=== PATIENT | male | born 1955 | race Hispanic/Latino ===

== ENCOUNTER 2024-06-04 06:57 | Inpatient (IN) | payer MEDICARE ==
[2024-05-25 10:28] LABS: BASOPHILS # (AUTO) 0.06 K/uL (0.00-0.20); BASOPHILS % (AUTO) 0.8 % (0.0-5.0); EOSINOPHILS # (AUTO) 0.12 K/uL (0.00-0.70); EOSINOPHILS % (AUTO) 1.6 % (0.0-8.0); HEMATOCRIT 44.1 % (42-54); IMMATURE GRANULOCYTE ABSOLUTE 0.02 K/uL (0-1); MEAN CORPUSCULAR HEMOGLOBIN 30.8 pg (27.0-33.0); MEAN CORPUSCULAR HGB CONC 32.2 g/dL (32.0-36.0); MEAN CORPUSCULAR VOLUME 95.7 fL (79-99); MONOCYTES # (AUTO) 0.7 K/uL (0.1-1.0); MONOCYTES % (AUTO) 9.6 % (3.0-13.0); NEUTROPHILS # (AUTO) 4.4 K/uL (1.8-7.7); NEUTROPHILS % (AUTO) 59.7 % (40.0-77.0); PLATELET COUNT (AUTO) 178 K/uL (130-400); RED BLOOD CELL COUNT(AUTO) 4.61 MIL/uL (4.50-6.20); RED CELL DISTRIBUTION WIDTH 13.3 % (11.0-15.5); WHITE BLOOD COUNT (AUTO) 7.3 K/uL (4.8-10.8)
[2024-05-25 10:35] LABS: CREATININE 1.1 mg/dL (0.5-1.3); POTASSIUM 5.6 mmol/L (3.5-5.1)
[2024-05-25 10:37] VITALS: BP 108/63; PULSE 69; RESP 17; TEMP 97.7
[2024-05-25 10:38] LABS: APPEARANCE,URINE CLEAR (CLEAR); BILIRUBIN,URINE NEGATIVE (NEGATIVE); COLOR,URINE LIGHT-YELLOW (YELLOW); GLUCOSE, URINE (UA) >=1000 mg/dL (NEGATIVE); KETONES,URINE NEGATIVE (NEGATIVE); LEUKOCYTE ESTERASE ,URINE NEGATIVE Leu/uL (NEGATIVE); NITRATE,URINE NEGATIVE (NEGATIVE); OCCULT BLOOD,URINE NEGATIVE (NEGATIVE); PROTEIN,URINE NEGATIVE (NEGATIVE); UROBILINOGEN,URINE 0.2 mg/dL (0.2-1.0)
[2024-05-25 10:38] LABS: INR 1.03 (0.85-1.15); PROTHROMBIN TIME 11.1 SEC (9.6-11.6)
[2024-05-25 10:39] LABS: PARTIAL THROMBOPLASTIN TIME 28.2 SEC (26.3-35.5)
[2024-05-25 10:41] LABS: ADD UA MICROSCOPIC YES
[2024-05-25 10:56] LABS: B-TYPE NATRIURETIC PEPTIDE 181 pg/mL (0-100)
[2024-05-25 11:06] LABS: SQUAMOUS EPITHELIAL CELL,UR RARE /HPF (0-2); WBC,URINE 0-1 /HPF (0-1)
[~2024-06-04] VITALS: Ht 162.6 cm; Wt 140.1 kg
[2024-06-04] VITALS (15 sets, daily range): BP systolic 129–162; BP diastolic 64–89; PULSE 65–85; RESP 12–18; TEMP 97.4–98.6; O2SAT 96–97
[~2024-06-04 06:57] MED LIST: AMLODIPINE PO; ATOR10 PO; CETI10TA57 PO; EMPA25TA PO; GABA-529 PO; ICOS1CAP PO; LOSA100T59 PO; METF-444 PO; NITR0.4T50 SL; OMEP40CA21 PO; PIOG45TA64 PO; TADA20TA70 PO; TAMS-1 PO; TIRZ5PEN SQ
[2024-06-04] MEDS: 0.9%NACL 1000ML 1,000 ML IV ONE (08:29)
[2024-06-04] MEDS ORDERED: LIDOCAINE HCL 400MG/20ML VIAL ONE (08:36)
[2024-06-04] MEDS ORDERED: HEParin-NS 1,000 UNIT/500 ML 1,000 ML IV ONE (08:37)
[2024-06-04] MEDS ORDERED: IOHEXOL 350 MG/ML 100ML INFUS..BTL IV ONE (08:37)
[2024-06-04] MEDS ORDERED: HEParin 10,000 UNIT/10ML (1,000 UNIT/ML) VIAL ONE (08:37)
[2024-06-04] MEDS ORDERED: MIDAZOLAM HCL 1 MG/ML 2ML VIAL ONE (08:54)
[2024-06-04] MEDS ORDERED: IOHEXOL-350 50ML VIAL IV ONE (09:06)
[2024-06-04] MEDS ORDERED: DEXTROSE 50%-WATER 50 ML DISP.SYRIN IV PRN (09:30)
[2024-06-04] MEDS ORDERED: GLUCAGON 1MG KIT 1 MG ML IM PRN (09:30)
[2024-06-04 10:40] LABS: INR 1.08 (0.85-1.15); PROTHROMBIN TIME 11.6 SEC (9.6-11.6)
[2024-06-04 10:41] LABS: PARTIAL THROMBOPLASTIN TIME 29.7 SEC (26.3-35.5)
[2024-06-04] MEDS: HEParin 25,000 UNITS/250ML D5W 250 ML IV SCH (10:56)
[2024-06-04] MEDS ORDERED: PoTASSium chloRIDE 20MEQ/100ML 100 ML IV PRN (16:00)
[2024-06-04] MEDS ORDERED: PoTASSium chloRIDE 20MEQ ER 20 MEQ ERTAB PO PRN (16:00)
[2024-06-04] MEDS ORDERED: PoTASSium chl 10% ELIXIR 20MEQ 20 MEQ/15 ML UDCUP PO PRN (16:00)
[2024-06-04] MEDS ORDERED: HEParin 5,000 UNIT VIAL IV PRN (16:00)
[2024-06-04] MEDS ORDERED: MAGNESIUM 2GM PREMIX 50ML 50 ML IV PRN (16:00)
[2024-06-04] MEDS: INSULIN humuLIN R 100 UNIT/ML 3ML SQ SCH (16:29)
[2024-06-04] MEDS: acetaMINOPHEN 325 MG TAB PO PRN (16:31)
[2024-06-04 16:52] LABS: ABG BASE EXCESS -0.4 mmol/L (-2.0-3.0); ABG HCO3 23.4 mmol/L (21.0-28.0); ABG OXYGEN SATURATION 92.1 % (95.0-99.0); ABG PCO2 36 mmHg (35-48); DEVICE COMMENT IMELDA RN RR; PO2, ARTERIAL BG 60.7 mmHg (83.0-108.0); VENT MODE, BG RA (ROOM AIR)
[2024-06-04 17:37] LABS: INR 1.07 (0.85-1.15); PROTHROMBIN TIME 11.5 SEC (9.6-11.6)
[2024-06-04 18:01] LABS: PARTIAL THROMBOPLASTIN TIME > 139.0 SEC (26.3-35.5)
[2024-06-04] MEDS: Icosapent Ethyl (Vascepa) 2 GM PO SCH (21:00)
[2024-06-04] MEDS ORDERED: MELATONIN 5 MG TABLET PO SCH (21:00)
[2024-06-04] MEDS: MELATONIN 5 MG TABLET PO PRN (21:10)
[2024-06-04 21:37] LABS: BASOPHILS # (AUTO) 0.07 K/uL (0.00-0.20); EOSINOPHILS # (AUTO) 0.11 K/uL (0.00-0.70); EOSINOPHILS % (AUTO) 1.6 % (0.0-8.0); HEMATOCRIT 44.1 % (42-54); IMMATURE GRANULOCYTE ABSOLUTE 0.02 K/uL (0-1); LYMPHOCYTES # (AUTO) 2.2 K/uL (1.0-4.8); LYMPHOCYTES % (AUTO) 31.3 % (21.0-51.0); MEAN CORPUSCULAR HEMOGLOBIN 30.6 pg (27.0-33.0); MEAN CORPUSCULAR HGB CONC 32.7 g/dL (32.0-36.0); MEAN CORPUSCULAR VOLUME 93.8 fL (79-99); MONOCYTES # (AUTO) 0.8 K/uL (0.1-1.0); MONOCYTES % (AUTO) 10.9 % (3.0-13.0); NEUTROPHILS # (AUTO) 3.9 K/uL (1.8-7.7); NEUTROPHILS % (AUTO) 54.9 % (40.0-77.0); PLATELET COUNT (AUTO) 175 K/uL (130-400); RED CELL DISTRIBUTION WIDTH 13.3 % (11.0-15.5); WHITE BLOOD COUNT (AUTO) 7.1 K/uL (4.8-10.8)
[2024-06-05] VITALS (7 sets, daily range): BP systolic 91–136; BP diastolic 45–72; PULSE 70–80; RESP 18–22; TEMP 97.8–98.4; O2SAT 95–97
[2024-06-05 04:12] LABS: BASOPHILS # (AUTO) 0.05 K/uL (0.00-0.20); BASOPHILS % (AUTO) 0.7 % (0.0-5.0); EOSINOPHILS # (AUTO) 0.18 K/uL (0.00-0.70); EOSINOPHILS % (AUTO) 2.7 % (0.0-8.0); HEMATOCRIT 40.7 % (42-54); IMMATURE GRANULOCYTE ABSOLUTE 0.02 K/uL (0-1); LYMPHOCYTES # (AUTO) 2.2 K/uL (1.0-4.8); LYMPHOCYTES % (AUTO) 32.3 % (21.0-51.0); MEAN CORPUSCULAR HEMOGLOBIN 30.2 pg (27.0-33.0); MEAN CORPUSCULAR HGB CONC 32.9 g/dL (32.0-36.0); MEAN CORPUSCULAR VOLUME 91.9 fL (79-99); MONOCYTES # (AUTO) 0.7 K/uL (0.1-1.0); MONOCYTES % (AUTO) 10.8 % (3.0-13.0); NEUTROPHILS # (AUTO) 3.6 K/uL (1.8-7.7); NEUTROPHILS % (AUTO) 53.2 % (40.0-77.0); PLATELET COUNT (AUTO) 164 K/uL (130-400); RED BLOOD CELL COUNT(AUTO) 4.43 MIL/uL (4.50-6.20); RED CELL DISTRIBUTION WIDTH 13.2 % (11.0-15.5); WHITE BLOOD COUNT (AUTO) 6.8 K/uL (4.8-10.8)
[2024-06-05 04:33] LABS: HEMOGLOBIN A1C 7.5 % (4.0-6.0)
[2024-06-05 04:36] LABS: CREATININE 0.9 mg/dL (0.5-1.3); POTASSIUM 4.1 mmol/L (3.5-5.1); THYROID STIMULATING HORMONE 4.78 uIU/mL (0.36-3.74)
[2024-06-05] MEDS: amLODIPine 5 MG TAB PO SCH (08:42)
[2024-06-05] MEDS: tamSULOsin HCL 0.4 MG CAP.ER.24H PO SCH (08:42)
[2024-06-05] MEDS: atorVAStatin 10 MG TABLET PO SCH (08:42)
[2024-06-05] MEDS: metOPROLol sucCINATE 25 MG TAB.SR.24H PO SCH (08:43)
[2024-06-05] MEDS: GABApentin 100 MG CAPSULE PO SCH (08:43)
[2024-06-05] MEDS: ISOSORBIDE MONO 30MG SR TAB PO SCH (08:43)
[2024-06-05] MEDS: LoSARTan 100 MG TABLET PO SCH (08:43)
[2024-06-05] MEDS: ASPIRIN 81MG CHEW TAB PO SCH (08:43)
[2024-06-05] MEDS ORDERED: AMLODIPINE 10 MG PO SCH (09:00)
[2024-06-05 09:54] LABS: INR 1.13 (0.85-1.15); PROTHROMBIN TIME 12.1 SEC (9.6-11.6)
[2024-06-05 10:41] LABS: PARTIAL THROMBOPLASTIN TIME > 139.0 SEC (26.3-35.5)
[2024-06-05] MEDS: Icosapent Ethyl (Vascepa) 2 GM PO SCH (11:39)
[2024-06-05 17:43] LABS: INR 1.09 (0.85-1.15); PROTHROMBIN TIME 11.7 SEC (9.6-11.6)
[2024-06-05 18:07] LABS: PARTIAL THROMBOPLASTIN TIME 118.2 SEC (26.3-35.5)
[2024-06-06] VITALS (8 sets, daily range): BP systolic 101–141; BP diastolic 54–71; PULSE 69–77; RESP 18; TEMP 97.8–98.4; O2SAT 94–96
[2024-06-06 10:58] LABS: CHOLESTEROL 93 mg/dL (<200); HDL CHOLESTEROL 55 mg/dL (29-71); LDL DIRECT 43 mg/dL (0-99); TRIGLYCERIDES 21 mg/dL (30-200)
[2024-06-06] MEDS: LACTULOSE 20 GM/30 ML UDCUP PO PRN (13:53)
[2024-06-07] VITALS (8 sets, daily range): BP systolic 95–135; BP diastolic 51–69; PULSE 69–85; RESP 18–20; TEMP 97.9–99.3; O2SAT 97–98
[2024-06-07 13:07] LABS: CREATININE 0.9 mg/dL (0.5-1.3); POTASSIUM 4.3 mmol/L (3.5-5.1)
[2024-06-07] MEDS ORDERED: ceFAZolin SODIUM 1 GM VIAL IVPB SCH (16:00)
[2024-06-07] MEDS: metOPROLol sucCINATE 25 MG TAB.SR.24H PO SCH (21:06)
[2024-06-08] VITALS (40 sets, daily range): BP systolic 72–199; BP diastolic 43–199; PULSE 63–105; RESP 12–22; TEMP 97.7–98.1; O2SAT 98–100
[2024-06-08 04:06] LABS: HEMATOCRIT 38.2 % (42-54); MEAN CORPUSCULAR HEMOGLOBIN 30.5 pg (27.0-33.0); MEAN CORPUSCULAR HGB CONC 32.5 g/dL (32.0-36.0); MEAN CORPUSCULAR VOLUME 94.1 fL (79-99); RED BLOOD CELL COUNT(AUTO) 4.06 MIL/uL (4.50-6.20); RED CELL DISTRIBUTION WIDTH 13.2 % (11.0-15.5); WHITE BLOOD COUNT (AUTO) 7.4 K/uL (4.8-10.8)
[2024-06-08 04:15] LABS: CREATININE 1.2 mg/dL (0.5-1.3); POTASSIUM 4.7 mmol/L (3.5-5.1)
[2024-06-08 04:21] LABS: BILIRUBIN,TOTAL 0.6 mg/dL (0.2-1.0); TOTAL PROTEIN, SERUM 6.1 g/dL (6.0-8.3)
[2024-06-08 04:23] LABS: HEMOGLOBIN A1C 7.3 % (4.0-6.0)
[2024-06-08 04:24] LABS: INR 1.09 (0.85-1.15); PROTHROMBIN TIME 11.7 SEC (9.6-11.6)
[2024-06-08 04:26] LABS: PARTIAL THROMBOPLASTIN TIME 50.1 SEC (26.3-35.5)
[2024-06-08] MEDS ORDERED: EPINEPHrine PF 1MG (1:1,000) 10 MG in 0.9% NACL 250ML 240 ML IV PRN (08:00)
[2024-06-08] MEDS ORDERED: NOREPINEPHRIN 8MG/250ML NS 250 ML IV PRN (08:00)
[2024-06-08] MEDS ORDERED: aminoCAProic ACID 5,000MG VIAL 15,000 MG in 0.9% NACL 500ML IV.SOLN 420 ML IV PRN (08:00)
[2024-06-08] MEDS: ceFAZolin SODIUM 2 GM VIAL IVPB SCH ×2 (08:00→20:07)
[2024-06-08] MEDS: atorVAStatin 20 MG TABLET PO SCH (09:00)
[2024-06-08] MEDS: LoSARTan 50 MG TABLET PO SCH (09:00)
[2024-06-08] MEDS: GABAPENTIN 300 MG CAPSULE PO SCH (09:00)
[2024-06-08] MEDS ORDERED: LIDOCAINE 2G/250ML 250 ML IV ONE (09:59)
[2024-06-08] MEDS ORDERED: NITROGLYCERIN 50MG/D5W 250ML 1 BOT ONE (09:59)
[2024-06-08] MEDS: 0.9%NACL 1000ML 1,000 ML IV ONE (10:39)
[2024-06-08] MEDS ORDERED: aminoCAProic ACID 5,000MG VIAL ONE (10:49)
[2024-06-08] MEDS ORDERED: GLYCOPYRROLATE 0.2 MG/ML 5 ML VIAL ONE (10:49)
[2024-06-08] MEDS ORDERED: HEParin 10,000 UNIT/10ML (1,000 UNIT/ML) VIAL ONE ×3 (10:49→12:21)
[2024-06-08] MEDS ORDERED: PROTamine SULFate 10 MG/ML 25ML VIAL IV ONE (10:49)
[2024-06-08] MEDS ORDERED: FENTanyl CITRate PF 50 MCG/1 ML 20ML VIAL IJ ONE (10:49)
[2024-06-08] MEDS ORDERED: EPINEPHrine PF 1MG (1:1,000) 1 MG/ML AMP ONE (10:49)
[2024-06-08] MEDS ORDERED: LIDOCAINE PF 100MG/5ML (2%) SYRINGE 5ML ONE (10:49)
[2024-06-08] MEDS ORDERED: proPOFol 10 MG/ML 20ML VIAL IV ONE (10:49)
[2024-06-08] MEDS ORDERED: NOREPINEPHRINE BITARTRATE 1 MG/1 ML ML IV ONE (10:49)
[2024-06-08] MEDS ORDERED: SODIUM BICARB 50MEQ 50ML VIAL 200 ML ONE (10:49)
[2024-06-08] MEDS ORDERED: ETOMIDATE 20MG VIAL ONE (10:50)
[2024-06-08] MEDS ORDERED: rocuRONium bROMide 10MG/1ML 5ML VL ONE ×3 (10:50→15:28)
[2024-06-08] MEDS ORDERED: MIDAZOLAM HCL 1 MG/ML 2ML VIAL ONE (10:50)
[2024-06-08] MEDS ORDERED: LACTULOSE 20 GM/30 ML UDCUP PO PRN (11:00)
[2024-06-08] MEDS ORDERED: MAGNESIUM HYDROXIDE 30 ML/UDCUP PO PRN (11:00)
[2024-06-08] MEDS ORDERED: AMIOdarone 150MG VIAL ONE ×3 (11:24→16:52)
[2024-06-08] MEDS ORDERED: VASOpressin 20 UNITS/ML 1ML VIAL ONE (11:25)
[2024-06-08 11:28] LABS: ABG BASE EXCESS -4.9 mmol/L (-2.0-3.0); ABG OXYGEN SATURATION 98.5 % (95.0-99.0); ABG PCO2 42 mmHg (35-48); ABG PH 7.319 (7.35-7.450); CARBON MONOXIDE 0.5; DEVICE COMMENT 1; HHb 1.5; PO2, ARTERIAL BG 156.8 mmHg (83.0-108.0)
[2024-06-08] MEDS ORDERED: NITROGLYCERIN 50MG/D5W 250ML 250 BOT IV SCH (11:30)
[2024-06-08] MEDS ORDERED: 0.9% NACL 500ML IV SCH (11:30)
[2024-06-08] MEDS ORDERED: SODIUM BICARB 50MEQ 50ML VIAL 150 ML ONE (11:30)
[2024-06-08] MEDS ORDERED: aminoCAProic ACID 5,000MG VIAL 15,000 MG in 0.9% NACL 250ML 250 ML IV SCH (11:30)
[2024-06-08] MEDS ORDERED: GLUCAGON 1MG KIT 1 MG ML IM PRN (11:30)
[2024-06-08] MEDS ORDERED: DEXTROSE 50%-WATER 50 ML DISP.SYRIN IV PRN (11:30)
[2024-06-08] MEDS ORDERED: morPHINE 2 MG SYG IV PRN ×2 (11:30)
[2024-06-08] MEDS ORDERED: 0.9%NACL 10ML VIAL IVP PRN (11:30)
[2024-06-08] MEDS ORDERED: traMADol HCL 50 MG TABLET PO PRN ×2 (11:30)
[2024-06-08] MEDS ORDERED: NOREPINEPHRINE BITARTRATE 8 MG in DEXTROSE 5%-WATER 250 ML IV PRN (11:30)
[2024-06-08] MEDS ORDERED: ceFAZolin SODIUM 1 GM VIAL ONE (11:42)
[2024-06-08] MEDS ORDERED: HEParin-NS 1,000 UNIT/500 ML 500 ML IV ONE (11:43)
[2024-06-08 12:36] LABS: ABG BASE EXCESS -3.4 mmol/L (-2.0-3.0); ABG HCO3 21.6 mmol/L (21.0-28.0); ABG OXYGEN SATURATION 97.5 % (95.0-99.0); ABG PCO2 39 mmHg (35-48); ABG PH 7.366 (7.35-7.450); CARBON MONOXIDE 0.5; DEVICE COMMENT 2; HHb 2.5; PO2, ARTERIAL BG 108.1 mmHg (83.0-108.0)
[2024-06-08 13:03] LABS: ABG BASE EXCESS -4.3 mmol/L (-2.0-3.0); ABG HCO3 20.1 mmol/L (21.0-28.0); ABG OXYGEN SATURATION 98.3 % (95.0-99.0); ABG PCO2 35 mmHg (35-48); ABG PH 7.378 (7.35-7.450); CARBON MONOXIDE 0.3; DEVICE COMMENT 3; HHb 1.7; PO2, ARTERIAL BG 171.2 mmHg (83.0-108.0)
[2024-06-08 13:37] LABS: ABG BASE EXCESS -3.6 mmol/L (-2.0-3.0); ABG OXYGEN SATURATION 97.9 % (95.0-99.0); ABG PCO2 37 mmHg (35-48); ABG PH 7.377 (7.35-7.450); CARBON MONOXIDE 0.6; DEVICE COMMENT 4; HHb 2.1; PO2, ARTERIAL BG 116.7 mmHg (83.0-108.0)
[2024-06-08] MEDS: ceFAZolin SODIUM 1 GM VIAL ONE (13:38)
[2024-06-08] MEDS: PAPAVERINE HCL 30 MG/ML 2ML VIAL ONE (13:39)
[2024-06-08 14:37] LABS: ABG BASE EXCESS -1.1 mmol/L (-2.0-3.0); ABG HCO3 23.8 mmol/L (21.0-28.0); ABG OXYGEN SATURATION 94.9 % (95.0-99.0); ABG PCO2 40 mmHg (35-48); ABG PH 7.389 (7.35-7.450); CARBON MONOXIDE 0.6; DEVICE COMMENT 1; HHb 5.1; PO2, ARTERIAL BG 78.7 mmHg (83.0-108.0)
[2024-06-08 15:06] LABS: ABG BASE EXCESS -2.4 mmol/L (-2.0-3.0); ABG HCO3 22.4 mmol/L (21.0-28.0); ABG OXYGEN SATURATION 97.8 % (95.0-99.0); ABG PCO2 38 mmHg (35-48); ABG PH 7.384 (7.35-7.450); CARBON MONOXIDE 0.1; DEVICE COMMENT 5; HHb 2.2; PO2, ARTERIAL BG 130.2 mmHg (83.0-108.0)
[2024-06-08] MEDS ORDERED: SODIUM BICARB 50MEQ 50ML VIAL 50 ML ONE (16:06)
[2024-06-08 16:26] LABS: ABG BASE EXCESS -8.2 mmol/L (-2.0-3.0); ABG OXYGEN SATURATION 95.5 % (95.0-99.0); ABG PCO2 29 mmHg (35-48); CARBON MONOXIDE 0.3; DEVICE COMMENT 6; HHb 4.5; PO2, ARTERIAL BG 88.4 mmHg (83.0-108.0)
[2024-06-08] MEDS ORDERED: MAGNESIUM SULFATE 4.06 MEQ/ML ***TPN USE ONLY IJ ONE (16:59)
[2024-06-08 17:07] LABS: ABG BASE EXCESS -1.1 mmol/L (-2.0-3.0); ABG HCO3 24.2 mmol/L (21.0-28.0); ABG OXYGEN SATURATION 95.3 % (95.0-99.0); ABG PCO2 43 mmHg (35-48); ABG PH 7.371 (7.35-7.450); CARBON MONOXIDE 0.3; DEVICE COMMENT 6; HHb 4.7; PO2, ARTERIAL BG 88.2 mmHg (83.0-108.0)
[2024-06-08] MEDS ORDERED: PoTASSium chloRIDE 20MEQ/100ML 100 ML IV ONE (17:09)
[2024-06-08 17:33] LABS: ABG BASE EXCESS -3.6 mmol/L (-2.0-3.0); ABG HCO3 21.9 mmol/L (21.0-28.0); ABG OXYGEN SATURATION 96.7 % (95.0-99.0); ABG PCO2 41 mmHg (35-48); ABG PH 7.346 (7.35-7.450); CARBON MONOXIDE 0.1; DEVICE COMMENT 7; HHb 3.3; PO2, ARTERIAL BG 104.2 mmHg (83.0-108.0)
[2024-06-08 17:46] LABS: ABG BASE EXCESS -3.7 mmol/L (-2.0-3.0); ABG HCO3 21.8 mmol/L (21.0-28.0); ABG OXYGEN SATURATION 97.3 % (95.0-99.0); ABG PCO2 41 mmHg (35-48); ABG PH 7.343 (7.35-7.450); CARBON MONOXIDE 0.3; DEVICE COMMENT 8; HHb 2.7; PO2, ARTERIAL BG 117.5 mmHg (83.0-108.0)
[2024-06-08 18:37] LABS: ABG BASE EXCESS -0.5 mmol/L (-2.0-3.0); ABG HCO3 25.6 mmol/L (21.0-28.0); ABG PCO2 47 mmHg (35-48); ABG PH 7.352 (7.35-7.450); PO2, ARTERIAL BG 104.3 mmHg (83.0-108.0); VENT MODE, BG SIMV PS 10 (ROOM AIR)
[2024-06-08 18:38] LABS: ABG HCO3 24.6 mmol/L (21.0-28.0); ABG OXYGEN SATURATION 96.5 % (95.0-99.0); ABG PCO2 44 mmHg (35-48); ABG PH 7.362 (7.35-7.450); CARBON MONOXIDE 0.6; HHb 3.5; PO2, ARTERIAL BG 106.9 mmHg (83.0-108.0); VENT MODE, BG SIMV PS 10 (ROOM AIR)
[2024-06-08 18:45] LABS: HEMATOCRIT 35.1 % (42-54); MEAN CORPUSCULAR HEMOGLOBIN 31.4 pg (27.0-33.0); MEAN CORPUSCULAR HGB CONC 32.5 g/dL (32.0-36.0); MEAN CORPUSCULAR VOLUME 96.7 fL (79-99); RED BLOOD CELL COUNT(AUTO) 3.63 MIL/uL (4.50-6.20); RED CELL DISTRIBUTION WIDTH 13.3 % (11.0-15.5); WHITE BLOOD COUNT (AUTO) 25.9 K/uL (4.8-10.8)
[2024-06-08] MEDS: PoTASSium chloRIDE 20MEQ/100ML 100 ML IV PRN (18:50)
[2024-06-08] MEDS: SODIUM BICARB 50MEQ 50ML VIAL IV PRN (18:50)
[2024-06-08] MEDS: dexmedeTOMIDine 400MCG/NS100ML IV SCH (18:50)
[2024-06-08] MEDS: INSULIN REGULAR, HUMAN 3ML 100 UNIT in 0.9%NACL 100ML 99 ML IV SCH (18:52)
[2024-06-08] MEDS: 0.9%NACL 1000ML 1,000 ML IV SCH (18:53)
[2024-06-08 18:55] LABS: INR 1.3 (0.85-1.15); PROTHROMBIN TIME 13.8 SEC (9.6-11.6)
[2024-06-08 18:56] LABS: CREATININE 1.3 mg/dL (0.5-1.3); MAGNESIUM 1.7 mg/dL (1.80-2.40); PARTIAL THROMBOPLASTIN TIME 26.8 SEC (26.3-35.5); POTASSIUM 3.3 mmol/L (3.5-5.1)
[2024-06-08] MEDS ORDERED: dexmedeTOMIDine 400MCG/NS100ML IV SCH (19:00)
[2024-06-08 19:35] LABS: ABG BASE EXCESS 0.7 mmol/L (-2.0-3.0); ABG HCO3 25.5 mmol/L (21.0-28.0); ABG OXYGEN SATURATION 98.2 % (95.0-99.0); ABG PCO2 42 mmHg (35-48); ABG PH 7.403 (7.35-7.450); CARBON MONOXIDE 0.4; HHb 1.8; PO2, ARTERIAL BG 185.2 mmHg (83.0-108.0); VENT MODE, BG SIMV PS 10 (ROOM AIR)
[2024-06-08] MEDS: MAGNESIUM 2GM PREMIX 50ML 50 ML IV PRN (19:45)
[2024-06-08] MEDS: EPINEPHrine PF 1MG (1:1,000) 10 MG in 0.9% NACL 250ML 240 ML IV PRN (19:47)
[2024-06-08] MEDS: VASOpressin 20 UNITS/ML 1ML Vi 20 UNITS in 0.9%NACL 100ML 100 ML IV SCH (19:52)
[2024-06-08 20:33] LABS: ABG HCO3 22.8 mmol/L (21.0-28.0); ABG OXYGEN SATURATION 98.2 % (95.0-99.0); ABG PCO2 40 mmHg (35-48); CARBON MONOXIDE 0.3; DEVICE COMMENT ALINE; HHb 1.8; PO2, ARTERIAL BG 269.3 mmHg (83.0-108.0); VENT MODE, BG SIMV PS10 (ROOM AIR)
[2024-06-08] MEDS: doCUSate SODIUM 100 MG CAP PO ONE (21:00)
[2024-06-08] MEDS: AMIOdarone 900MG VIAL 540 MG in DEXTROSE 5%-WATER 300 ML IV STA (21:20)
[2024-06-08] MEDS: FAMOTIDINE 20MG VIAL IV SCH (21:21)
[2024-06-08] MEDS: ASPIRIN 81MG CHEW TAB NG ONE (21:21)
[2024-06-08 21:33] LABS: ABG BASE EXCESS -1.8 mmol/L (-2.0-3.0); ABG HCO3 23.3 mmol/L (21.0-28.0); ABG OXYGEN SATURATION 98.2 % (95.0-99.0); ABG PCO2 41 mmHg (35-48); ABG PH 7.372 (7.35-7.450); CARBON MONOXIDE 0.1; HHb 1.8; PO2, ARTERIAL BG 231.5 mmHg (83.0-108.0); VENT MODE, BG SIMV PS 10 (ROOM AIR)
[2024-06-08] MEDS: NOREPINEPHRIN 8MG/250ML NS 250 ML IV PRN (22:11)
[2024-06-08] MEDS: ALBUMIN (HUMAN) 5% 250 ML IV PRN (22:14)
[2024-06-08] MEDS: proPOFol 1000 MG/100 ML 100 ML IV PRN (22:16)
[2024-06-08 22:35] LABS: ABG BASE EXCESS -3.1 mmol/L (-2.0-3.0); ABG HCO3 21.6 mmol/L (21.0-28.0); ABG OXYGEN SATURATION 97.9 % (95.0-99.0); ABG PCO2 37 mmHg (35-48); ABG PH 7.379 (7.35-7.450); CARBON MONOXIDE 0.3; HHb 2.1; PO2, ARTERIAL BG 197.9 mmHg (83.0-108.0); VENT MODE, BG SIMV PS 10 (ROOM AIR)
[2024-06-08] MEDS: ALBUMIN (HUMAN) 5% 250 ML IV ONE (23:06)
[2024-06-08 23:28] LABS: ABG BASE EXCESS 4.4 mmol/L (-2.0-3.0); ABG HCO3 28.9 mmol/L (21.0-28.0); ABG OXYGEN SATURATION 98.1 % (95.0-99.0); ABG PCO2 43 mmHg (35-48); ABG PH 7.448 (7.35-7.450); CARBON MONOXIDE 0.3; HHb 1.9; PO2, ARTERIAL BG 251.7 mmHg (83.0-108.0); VENT MODE, BG SIMV PS10 (ROOM AIR)
[2024-06-08] MEDS ORDERED: ALBUMIN IV STA (23:54)
[2024-06-09] VITALS (107 sets, daily range): BP systolic 63–143; BP diastolic 37–111; PULSE 80–109; RESP 10–95; TEMP 97.8–101.9; O2SAT 50–100
[2024-06-09] MEDS: ALBUMIN (HUMAN) 5% 250 ML IV SCH (00:21)
[2024-06-09] MEDS: ALBUMIN (HUMAN) 5% 500 ML IV ONE (00:23)
[2024-06-09 00:56] LABS: ABG HCO3 25.2 mmol/L (21.0-28.0); ABG PCO2 39 mmHg (35-48); ABG PH 7.432 (7.35-7.450); CARBON MONOXIDE 0.3; PO2, ARTERIAL BG 125.2 mmHg (83.0-108.0); VENT MODE, BG SIMV PS 10 (ROOM AIR)
[2024-06-09 01:52] LABS: ABG BASE EXCESS 1.5 mmol/L (-2.0-3.0); ABG HCO3 25.3 mmol/L (21.0-28.0); ABG OXYGEN SATURATION 97.5 % (95.0-99.0); ABG PCO2 37 mmHg (35-48); ABG PH 7.457 (7.35-7.450); CARBON MONOXIDE 0.3; HHb 2.5; VENT MODE, BG SIMV PS10 (ROOM AIR)
[2024-06-09] MEDS: PoTASSium chl 10% ELIXIR 20MEQ 20 MEQ/15 ML UDCUP PO PRN (01:57)
[2024-06-09 02:34] LABS: HEMATOCRIT 25.9 % (42-54); MEAN CORPUSCULAR HEMOGLOBIN 31.1 pg (27.0-33.0); MEAN CORPUSCULAR VOLUME 91.5 fL (79-99); RED BLOOD CELL COUNT(AUTO) 2.83 MIL/uL (4.50-6.20); RED CELL DISTRIBUTION WIDTH 13.8 % (11.0-15.5); WHITE BLOOD COUNT (AUTO) 14.4 K/uL (4.8-10.8)
[2024-06-09 02:41] LABS: INR 1.49 (0.85-1.15); PROTHROMBIN TIME 15.6 SEC (9.6-11.6)
[2024-06-09 02:42] LABS: PARTIAL THROMBOPLASTIN TIME 81.8 SEC (26.3-35.5)
[2024-06-09 02:49] LABS: CREATININE 1.4 mg/dL (0.5-1.3); MAGNESIUM 1.7 mg/dL (1.80-2.40); POTASSIUM 4.6 mmol/L (3.5-5.1)
[2024-06-09 02:52] LABS: PHOSPHORUS 0.6 mg/dL (2.5-4.9)
[2024-06-09 02:59] LABS: ABG BASE EXCESS 2.8 mmol/L (-2.0-3.0); ABG HCO3 26.9 mmol/L (21.0-28.0); ABG OXYGEN SATURATION 96.8 % (95.0-99.0); ABG PCO2 40 mmHg (35-48); ABG PH 7.451 (7.35-7.450); CARBON MONOXIDE 0.3; HHb 3.2; PO2, ARTERIAL BG 116.5 mmHg (83.0-108.0); VENT MODE, BG SIMV PS10 (ROOM AIR)
[2024-06-09] MEDS ORDERED: FENTanyl CITRate PF 0.05 MG/ML 1,000 MCG in 0.9%NACL 100ML 100 ML IJ PRN (03:00)
[2024-06-09] MEDS: FENTanyl 1000MCG+NS 100ML 100 ML IV ONE (03:09)
[2024-06-09 03:43] LABS: ABG BASE EXCESS 2.6 mmol/L (-2.0-3.0); ABG HCO3 25.1 mmol/L (21.0-28.0); ABG PCO2 31 mmHg (35-48); ABG PH 7.529 (7.35-7.450); CARBON MONOXIDE 0.2; PO2, ARTERIAL BG 116.5 mmHg (83.0-108.0); VENT MODE, BG SIMV PS 10 (ROOM AIR)
[2024-06-09 04:48] LABS: ABG HCO3 28.8 mmol/L (21.0-28.0); ABG OXYGEN SATURATION 96.7 % (95.0-99.0); ABG PCO2 40 mmHg (35-48); ABG PH 7.479 (7.35-7.450); CARBON MONOXIDE 0.3; HHb 3.3; PO2, ARTERIAL BG 109.1 mmHg (83.0-108.0); VENT MODE, BG SIMV PS 10 (ROOM AIR)
[2024-06-09] MEDS: ondanSETRON 4MG INJ IV PRN (05:23)
[2024-06-09 06:23] LABS: ABG BASE EXCESS 5.5 mmol/L (-2.0-3.0); ABG HCO3 29.3 mmol/L (21.0-28.0); ABG OXYGEN SATURATION 96.7 % (95.0-99.0); ABG PCO2 40 mmHg (35-48); ABG PH 7.483 (7.35-7.450); CARBON MONOXIDE 0.3; DEVICE COMMENT TED RN AL; HHb 3.3; PO2, ARTERIAL BG 110.8 mmHg (83.0-108.0); VENT MODE, BG SIMV PS 10 (ROOM AIR)
[2024-06-09] MEDS: ceFAZolin SODIUM 2 GM VIAL ONE ×2 (07:32→10:33)
[2024-06-09] MEDS: acetaMINOPHEN 1,000 MG/100 ML VIAL IV SCH ×2 (07:32→18:01)
[2024-06-09 07:47] LABS: ABG BASE EXCESS 4.8 mmol/L (-2.0-3.0); ABG HCO3 28.9 mmol/L (21.0-28.0); ABG OXYGEN SATURATION 93.9 % (95.0-99.0); ABG PCO2 41 mmHg (35-48); ABG PH 7.466 (7.35-7.450); CARBON MONOXIDE 0.8; PO2, ARTERIAL BG 74.7 mmHg (83.0-108.0); VENT MODE, BG SIMV PS 10 (ROOM AIR)
[2024-06-09] MEDS: CALCIUM GLUC 1GM 1 GM in 0.9%NACL 50ML 50 ML IV PRN (07:57)
[2024-06-09 08:57] LABS: ABG BASE EXCESS 4.8 mmol/L (-2.0-3.0); ABG HCO3 28.6 mmol/L (21.0-28.0); ABG PCO2 39 mmHg (35-48); ABG PH 7.482 (7.35-7.450); CARBON MONOXIDE 0.7; PO2, ARTERIAL BG 77.3 mmHg (83.0-108.0); VENT MODE, BG SIMV PS10 (ROOM AIR)
[2024-06-09] MEDS: atorVAStatin 40 MG TABLET PO SCH (09:00)
[2024-06-09] MEDS: furoSEMIDE 20MG VIAL IV SCH (09:00)
[2024-06-09] MEDS: poTASSium PHOS 15 mMOL+NS250ML 250 ML IV PRN (09:42)
[2024-06-09 09:52] LABS: ALBUMIN 2.8 g/dL (3.5-5.0); BILIRUBIN,DIRECT 0.3 mg/dL (0.0-0.3); BILIRUBIN,TOTAL 1.8 mg/dL (0.2-1.0); TOTAL PROTEIN, SERUM 4.5 g/dL (6.0-8.3)
[2024-06-09 10:13] LABS: ABG BASE EXCESS 5.2 mmol/L (-2.0-3.0); ABG HCO3 29.1 mmol/L (21.0-28.0); ABG OXYGEN SATURATION 92.3 % (95.0-99.0); ABG PCO2 40 mmHg (35-48); ABG PH 7.479 (7.35-7.450); CARBON MONOXIDE 1.2; HHb 7.6; PO2, ARTERIAL BG 65.7 mmHg (83.0-108.0); VENT MODE, BG SIMV PS 10 (ROOM AIR)
[2024-06-09 11:10] LABS: ABG BASE EXCESS 5.8 mmol/L (-2.0-3.0); ABG HCO3 29.9 mmol/L (21.0-28.0); ABG OXYGEN SATURATION 93.8 % (95.0-99.0); ABG PCO2 42 mmHg (35-48); ABG PH 7.475 (7.35-7.450); CARBON MONOXIDE 1.4; HHb 6.1; PO2, ARTERIAL BG 74.2 mmHg (83.0-108.0); VENT MODE, BG SIMV PS 10 (ROOM AIR)
[2024-06-09 12:17] LABS: ABG BASE EXCESS 6.7 mmol/L (-2.0-3.0); ABG HCO3 30.8 mmol/L (21.0-28.0); ABG OXYGEN SATURATION 92.8 % (95.0-99.0); ABG PCO2 42 mmHg (35-48); ABG PH 7.481 (7.35-7.450); CARBON MONOXIDE 0.8; HHb 7.1; PO2, ARTERIAL BG 70.4 mmHg (83.0-108.0); VENT MODE, BG SIMV PS 10 (ROOM AIR)
[2024-06-09 16:29] LABS: BASOPHILS # (AUTO) 0.05 K/uL (0.00-0.20); BASOPHILS % (AUTO) 0.4 % (0.0-5.0); IMMATURE GRANULOCYTE ABSOLUTE 0.05 K/uL (0-1); LYMPHOCYTES # (AUTO) 2.3 K/uL (1.0-4.8); LYMPHOCYTES % (AUTO) 18.1 % (21.0-51.0); MEAN CORPUSCULAR HEMOGLOBIN 30.5 pg (27.0-33.0); MEAN CORPUSCULAR HGB CONC 33.2 g/dL (32.0-36.0); MONOCYTES # (AUTO) 1.9 K/uL (0.1-1.0); MONOCYTES % (AUTO) 14.7 % (3.0-13.0); NEUTROPHILS # (AUTO) 8.5 K/uL (1.8-7.7); NEUTROPHILS % (AUTO) 66.4 % (40.0-77.0); NUCLEATED RED BLOOD CELLS 0.2 % (0.0-0.19); PLATELET COUNT (AUTO) 73 K/uL (130-400); RED BLOOD CELL COUNT(AUTO) 2.26 MIL/uL (4.50-6.20); RED CELL DISTRIBUTION WIDTH 16.2 % (11.0-15.5); WHITE BLOOD COUNT (AUTO) 12.8 K/uL (4.8-10.8)
[2024-06-09 16:42] LABS: ALBUMIN 2.9 g/dL (3.5-5.0); CREATININE 1.7 mg/dL (0.5-1.3); HEMATOCRIT 20.8 % (42-54); POTASSIUM 4.9 mmol/L (3.5-5.1); TOTAL PROTEIN, SERUM 4.6 g/dL (6.0-8.3)
[2024-06-09 17:17] LABS: INR 1.44 (0.85-1.15); PROTHROMBIN TIME 15.1 SEC (9.6-11.6)
[2024-06-09 17:18] LABS: PARTIAL THROMBOPLASTIN TIME 36.5 SEC (26.3-35.5)
[2024-06-09] MEDS: FENTanyl 1000MCG+NS 100ML 100 ML IV SCH (18:10)
[2024-06-09 18:11] LABS: ABG BASE EXCESS 5.1 mmol/L (-2.0-3.0); ABG HCO3 28.8 mmol/L (21.0-28.0); ABG OXYGEN SATURATION 91.1 % (95.0-99.0); ABG PCO2 39 mmHg (35-48); ABG PH 7.489 (7.35-7.450); HHb 8.7; PO2, ARTERIAL BG 60.3 mmHg (83.0-108.0); VENT MODE, BG SIMV PS 10 (ROOM AIR)
[2024-06-09] MEDS ORDERED: 0.9%NACL 50ML IV SCH (20:00)
[2024-06-09 20:06] LABS: ABG BASE EXCESS 5.1 mmol/L (-2.0-3.0); ABG HCO3 28.7 mmol/L (21.0-28.0); ABG OXYGEN SATURATION 94.9 % (95.0-99.0); ABG PCO2 38 mmHg (35-48); ABG PH 7.498 (7.35-7.450); CARBON MONOXIDE 0.5; DEVICE COMMENT ALINE; PO2, ARTERIAL BG 80.3 mmHg (83.0-108.0); VENT MODE, BG AC VC (ROOM AIR)
[2024-06-09] MEDS: ZOSYN 3.375GM +NS 50ML IVPB SCH (20:12)
[2024-06-09 22:10] LABS: ABG BASE EXCESS 3.6 mmol/L (-2.0-3.0); ABG HCO3 26.9 mmol/L (21.0-28.0); ABG OXYGEN SATURATION 93.3 % (95.0-99.0); ABG PCO2 35 mmHg (35-48); ABG PH 7.501 (7.35-7.450); CARBON MONOXIDE 0.8; HHb 6.6; PO2, ARTERIAL BG 70.4 mmHg (83.0-108.0)
[2024-06-10] VITALS (105 sets, daily range): BP systolic 73–175; BP diastolic 45–167; PULSE 88–133; RESP 10–120; TEMP 97.7–100.6; O2SAT 92–98
[2024-06-10 00:05] LABS: ABG BASE EXCESS 4.9 mmol/L (-2.0-3.0); ABG HCO3 27.9 mmol/L (21.0-28.0); ABG OXYGEN SATURATION 94.7 % (95.0-99.0); ABG PCO2 34 mmHg (35-48); CARBON MONOXIDE 0.9; HHb 5.2; PO2, ARTERIAL BG 77.2 mmHg (83.0-108.0); VENT MODE, BG SIMV ALINE (ROOM AIR)
[2024-06-10 00:51] LABS: MAGNESIUM 1.9 mg/dL (1.80-2.40); PHOSPHORUS 4.5 mg/dL (2.5-4.9)
[2024-06-10 02:21] LABS: ABG BASE EXCESS 3.6 mmol/L (-2.0-3.0); ABG HCO3 26.5 mmol/L (21.0-28.0); ABG OXYGEN SATURATION 94.3 % (95.0-99.0); ABG PCO2 33 mmHg (35-48); CARBON MONOXIDE 0.6; HHb 5.6; PO2, ARTERIAL BG 73.2 mmHg (83.0-108.0); VENT MODE, BG AC VC (ROOM AIR)
[2024-06-10 04:15] LABS: ABG BASE EXCESS 4.5 mmol/L (-2.0-3.0); ABG HCO3 27.5 mmol/L (21.0-28.0); ABG OXYGEN SATURATION 95.5 % (95.0-99.0); ABG PCO2 34 mmHg (35-48); ABG PH 7.525 (7.35-7.450); CARBON MONOXIDE 0.4; HHb 4.4; PO2, ARTERIAL BG 87.3 mmHg (83.0-108.0); VENT MODE, BG AC VC (ROOM AIR)
[2024-06-10 04:51] LABS: BASOPHILS # (AUTO) 0.06 K/uL (0.00-0.20); BASOPHILS % (AUTO) 0.4 % (0.0-5.0); EOSINOPHILS # (AUTO) 0.05 K/uL (0.00-0.70); EOSINOPHILS % (AUTO) 0.3 % (0.0-8.0); HEMATOCRIT 21.9 % (42-54); LYMPHOCYTES # (AUTO) 2.7 K/uL (1.0-4.8); LYMPHOCYTES % (AUTO) 16.8 % (21.0-51.0); MEAN CORPUSCULAR HEMOGLOBIN 30.8 pg (27.0-33.0); MEAN CORPUSCULAR HGB CONC 33.8 g/dL (32.0-36.0); MEAN CORPUSCULAR VOLUME 91.3 fL (79-99); MONOCYTES # (AUTO) 1.8 K/uL (0.1-1.0); MONOCYTES % (AUTO) 10.8 % (3.0-13.0); NEUTROPHILS # (AUTO) 11.6 K/uL (1.8-7.7); NEUTROPHILS % (AUTO) 71.1 % (40.0-77.0); NUCLEATED RED BLOOD CELLS 0.2 % (0.0-0.19); PLATELET COUNT (AUTO) 62 K/uL (130-400); RED CELL DISTRIBUTION WIDTH 16.3 % (11.0-15.5); WHITE BLOOD COUNT (AUTO) 16.3 K/uL (4.8-10.8)
[2024-06-10 05:08] LABS: ALBUMIN 2.8 g/dL (3.5-5.0); BILIRUBIN,DIRECT 0.4 mg/dL (0.0-0.3); BILIRUBIN,TOTAL 2.1 mg/dL (0.2-1.0); CREATININE 1.9 mg/dL (0.5-1.3); POTASSIUM 4.4 mmol/L (3.5-5.1); TOTAL PROTEIN, SERUM 4.7 g/dL (6.0-8.3)
[2024-06-10 05:20] LABS: INR 1.48 (0.85-1.15); PROTHROMBIN TIME 15.5 SEC (9.6-11.6)
[2024-06-10 05:22] LABS: PARTIAL THROMBOPLASTIN TIME 35.2 SEC (26.3-35.5)
[2024-06-10 07:14] LABS: ABG BASE EXCESS 3.9 mmol/L (-2.0-3.0); ABG HCO3 27.8 mmol/L (21.0-28.0); ABG OXYGEN SATURATION 92.6 % (95.0-99.0); ABG PCO2 39 mmHg (35-48); ABG PH 7.471 (7.35-7.450); CARBON MONOXIDE 0.8; HHb 7.3; PO2, ARTERIAL BG 69.6 mmHg (83.0-108.0); VENT MODE, BG SIMV PS 10 (ROOM AIR)
[2024-06-10] MEDS: AMIOdarone 150MG VIAL 150 MG in DEXTROSE 5%-WATER 100 ML IV PRN (07:40)
[2024-06-10] MEDS: AMIOdarone 900MG VIAL 360 MG in DEXTROSE 5%-WATER 200 ML IV SCH (07:45)
[2024-06-10] MEDS ORDERED: AMIOdarone 900MG VIAL 360 MG in DEXTROSE 5%-WATER 200 ML IV SCH (08:00)
[2024-06-10] MEDS ORDERED: AMIOdarone 900MG VIAL 540 MG in DEXTROSE 5%-WATER 300 ML IV SCH (08:00)
[2024-06-10] MEDS ORDERED: furoSEMIDE 20 MG TABLET PO SCH (09:00)
[2024-06-10] MEDS ORDERED: metoPROLOL tartRATE 25 MG TAB PO SCH (09:00)
[2024-06-10 09:16] LABS: ABG BASE EXCESS 1.2 mmol/L (-2.0-3.0); ABG HCO3 25.7 mmol/L (21.0-28.0); ABG OXYGEN SATURATION 94.1 % (95.0-99.0); ABG PCO2 40 mmHg (35-48); ABG PH 7.426 (7.35-7.450); CARBON MONOXIDE 0.9; HHb 5.8; PO2, ARTERIAL BG 80.6 mmHg (83.0-108.0); VENT MODE, BG SIMV (ROOM AIR)
[2024-06-10 11:34] LABS: ABG HCO3 25.7 mmol/L (21.0-28.0); ABG OXYGEN SATURATION 92.5 % (95.0-99.0); ABG PCO2 36 mmHg (35-48); ABG PH 7.474 (7.35-7.450); CARBON MONOXIDE 0.9; HHb 7.4; VENT MODE, BG SIMV PS10 (ROOM AIR)
[2024-06-10] MEDS: AMIOdarone 900MG VIAL 540 MG in DEXTROSE 5%-WATER 300 ML IV SCH (13:35)
[2024-06-10 14:09] LABS: ABG BASE EXCESS 3.8 mmol/L (-2.0-3.0); ABG HCO3 28.2 mmol/L (21.0-28.0); ABG PCO2 42 mmHg (35-48); ABG PH 7.443 (7.35-7.450); CARBON MONOXIDE 0.9; HHb 5.9; PO2, ARTERIAL BG 77.1 mmHg (83.0-108.0); VENT MODE, BG SIMV PS 10 (ROOM AIR)
[2024-06-10 16:03] LABS: BASOPHILS # (AUTO) 0.06 K/uL (0.00-0.20); BASOPHILS % (AUTO) 0.3 % (0.0-5.0); EOSINOPHILS # (AUTO) 0.01 K/uL (0.00-0.70); EOSINOPHILS % (AUTO) 0.1 % (0.0-8.0); HEMATOCRIT 23.9 % (42-54); LYMPHOCYTES # (AUTO) 1.9 K/uL (1.0-4.8); MEAN CORPUSCULAR HEMOGLOBIN 30.8 pg (27.0-33.0); MEAN CORPUSCULAR HGB CONC 33.9 g/dL (32.0-36.0); MEAN CORPUSCULAR VOLUME 90.9 fL (79-99); MONOCYTES # (AUTO) 1.5 K/uL (0.1-1.0); MONOCYTES % (AUTO) 8.3 % (3.0-13.0); NEUTROPHILS # (AUTO) 13.9 K/uL (1.8-7.7); NEUTROPHILS % (AUTO) 79.2 % (40.0-77.0); NUCLEATED RED BLOOD CELLS 0.3 % (0.0-0.19); PLATELET COUNT (AUTO) 54 K/uL (130-400); RED BLOOD CELL COUNT(AUTO) 2.63 MIL/uL (4.50-6.20); RED CELL DISTRIBUTION WIDTH 16.5 % (11.0-15.5); WHITE BLOOD COUNT (AUTO) 17.5 K/uL (4.8-10.8)
[2024-06-10 16:24] LABS: ABG BASE EXCESS 4.5 mmol/L (-2.0-3.0); ABG HCO3 28.8 mmol/L (21.0-28.0); ABG OXYGEN SATURATION 96.1 % (95.0-99.0); ABG PCO2 42 mmHg (35-48); ABG PH 7.456 (7.35-7.450); CARBON MONOXIDE 0.7; HHb 3.9; PO2, ARTERIAL BG 90.3 mmHg (83.0-108.0); VENT MODE, BG SIMV (ROOM AIR)
[2024-06-10 16:26] LABS: ALBUMIN 2.6 g/dL (3.5-5.0); BILIRUBIN,TOTAL 1.8 mg/dL (0.2-1.0); CREATININE 1.9 mg/dL (0.5-1.3); MAGNESIUM 2.3 mg/dL (1.80-2.40); POTASSIUM 4.4 mmol/L (3.5-5.1); TOTAL PROTEIN, SERUM 4.6 g/dL (6.0-8.3)
[2024-06-10] MEDS: furoSEMIDE 20MG VIAL IV SCH (16:49)
[2024-06-10] MEDS: furoSEMIDE 100MG VIAL 100 MG in 0.9%NACL 100ML 100 ML IV SCH (17:13)
[2024-06-10 17:54] LABS: ABG BASE EXCESS 3.7 mmol/L (-2.0-3.0); ABG HCO3 28.2 mmol/L (21.0-28.0); ABG OXYGEN SATURATION 95.3 % (95.0-99.0); ABG PCO2 43 mmHg (35-48); ABG PH 7.437 (7.35-7.450); CARBON MONOXIDE 0.6; DEVICE COMMENT RN BRIZA; HHb 4.6; PO2, ARTERIAL BG 85.6 mmHg (83.0-108.0); VENT MODE, BG SIMV (ROOM AIR)
[2024-06-10] MEDS: AMIOdarone 150MG VIAL 150 MG in DEXTROSE 5%-WATER 100 ML IV SCH (18:44)
[2024-06-10 20:28] LABS: ABG BASE EXCESS 1.8 mmol/L (-2.0-3.0); ABG HCO3 26.6 mmol/L (21.0-28.0); ABG OXYGEN SATURATION 96.7 % (95.0-99.0); ABG PCO2 43 mmHg (35-48); ABG PH 7.409 (7.35-7.450); CARBON MONOXIDE 0.5; HHb 3.3; PO2, ARTERIAL BG 101.9 mmHg (83.0-108.0); VENT MODE, BG SIMV,PS10 (ROOM AIR)
[2024-06-10 22:18] LABS: ABG BASE EXCESS 2.2 mmol/L (-2.0-3.0); ABG HCO3 26.9 mmol/L (21.0-28.0); ABG PCO2 43 mmHg (35-48); CARBON MONOXIDE 0.2; PO2, ARTERIAL BG 94.4 mmHg (83.0-108.0); VENT MODE, BG SIMV,PS10 (ROOM AIR)
[2024-06-10] MEDS: CALCIUM GLUC 1GM/10ML VIAL ONE (23:27)
[2024-06-11] VITALS (122 sets, daily range): BP systolic 87–233; BP diastolic 37–229; PULSE 46–121; RESP 10–117; TEMP 98.2–100.6; O2SAT 97–99
[2024-06-11 00:16] LABS: ABG BASE EXCESS 0.2 mmol/L (-2.0-3.0); ABG HCO3 25.1 mmol/L (21.0-28.0); ABG OXYGEN SATURATION 96.4 % (95.0-99.0); ABG PCO2 42 mmHg (35-48); ABG PH 7.395 (7.35-7.450); CARBON MONOXIDE 0.2; HHb 3.6; PO2, ARTERIAL BG 103.3 mmHg (83.0-108.0); VENT MODE, BG SIMV (ROOM AIR)
[2024-06-11] MEDS: ZOSYN 3.375GM +NS 50ML IVPB SCH ×2 (00:17→20:31)
[2024-06-11] MEDS: CALCIUM GLUC 1GM/10ML VIAL ONE ×4 (01:38→23:31)
[2024-06-11 02:32] LABS: ABG BASE EXCESS -3.7 mmol/L (-2.0-3.0); ABG HCO3 21.4 mmol/L (21.0-28.0); ABG OXYGEN SATURATION 97.9 % (95.0-99.0); ABG PCO2 38 mmHg (35-48); ABG PH 7.363 (7.35-7.450); CARBON MONOXIDE 0.2; HHb 2.1; PO2, ARTERIAL BG 122.2 mmHg (83.0-108.0); VENT MODE, BG SIMV (ROOM AIR)
[2024-06-11] MEDS: SODIUM BICARB 50MEQ 50ML VIAL 150 ML ONE (03:14)
[2024-06-11 03:44] LABS: BASOPHILS # (AUTO) 0.08 K/uL (0.00-0.20); BASOPHILS % (AUTO) 0.4 % (0.0-5.0); EOSINOPHILS # (AUTO) 0.09 K/uL (0.00-0.70); EOSINOPHILS % (AUTO) 0.5 % (0.0-8.0); IMMATURE GRANULOCYTE ABSOLUTE 0.25 K/uL (0-1); LYMPHOCYTES # (AUTO) 2.3 K/uL (1.0-4.8); LYMPHOCYTES % (AUTO) 11.7 % (21.0-51.0); MEAN CORPUSCULAR HEMOGLOBIN 30.4 pg (27.0-33.0); MEAN CORPUSCULAR HGB CONC 33.9 g/dL (32.0-36.0); MEAN CORPUSCULAR VOLUME 89.5 fL (79-99); MONOCYTES # (AUTO) 1.8 K/uL (0.1-1.0); MONOCYTES % (AUTO) 9.3 % (3.0-13.0); NEUTROPHILS % (AUTO) 76.8 % (40.0-77.0); NUCLEATED RED BLOOD CELLS 0.6 % (0.0-0.19); PLATELET COUNT (AUTO) 73 K/uL (130-400); RED BLOOD CELL COUNT(AUTO) 2.57 MIL/uL (4.50-6.20); RED CELL DISTRIBUTION WIDTH 17.2 % (11.0-15.5); WHITE BLOOD COUNT (AUTO) 19.5 K/uL (4.8-10.8)
[2024-06-11 03:59] LABS: INR 1.35 (0.85-1.15); PROTHROMBIN TIME 14.3 SEC (9.6-11.6)
[2024-06-11 04:00] LABS: PARTIAL THROMBOPLASTIN TIME 32.9 SEC (26.3-35.5)
[2024-06-11 04:12] LABS: ALBUMIN 2.6 g/dL (3.5-5.0); BILIRUBIN,DIRECT 0.9 mg/dL (0.0-0.3); CREATININE 2.2 mg/dL (0.5-1.3); POTASSIUM 4.5 mmol/L (3.5-5.1); TOTAL PROTEIN, SERUM 4.7 g/dL (6.0-8.3)
[2024-06-11 05:08] LABS: ABG BASE EXCESS 5.7 mmol/L (-2.0-3.0); ABG HCO3 30.7 mmol/L (21.0-28.0); ABG PCO2 47 mmHg (35-48); ABG PH 7.429 (7.35-7.450); CARBON MONOXIDE 0.6; HHb 4.9; PO2, ARTERIAL BG 82.3 mmHg (83.0-108.0); VENT MODE, BG SIMV (ROOM AIR)
[2024-06-11] MEDS ORDERED: ENOXAPARIN SODIUM 30 MG/0.3 ML SQ SCH (09:00)
[2024-06-11 10:15] LABS: ABG BASE EXCESS 4.3 mmol/L (-2.0-3.0); ABG HCO3 28.6 mmol/L (21.0-28.0); ABG OXYGEN SATURATION 97.4 % (95.0-99.0); ABG PCO2 42 mmHg (35-48); ABG PH 7.453 (7.35-7.450); CARBON MONOXIDE 1.1; HHb 2.6; PO2, ARTERIAL BG 105.5 mmHg (83.0-108.0); VENT MODE, BG SIMV, PS10 (ROOM AIR)
[2024-06-11] MEDS ORDERED: COMPOUND IV MISC 1 EACH IVSOLN MISC PRN (12:30)
[2024-06-11] MEDS: AMIOdarone 200 MG TABLET PO SCH (13:34)
[2024-06-11] MEDS: levoFLOXacin 250 MG/D5W 50ML 50 ML IV SCH (13:41)
[2024-06-11 14:16] LABS: ABG BASE EXCESS 5.7 mmol/L (-2.0-3.0); ABG HCO3 30.4 mmol/L (21.0-28.0); ABG OXYGEN SATURATION 97.4 % (95.0-99.0); ABG PCO2 46 mmHg (35-48); ABG PH 7.441 (7.35-7.450); CARBON MONOXIDE 0.7; HHb 2.6; PO2, ARTERIAL BG 110.8 mmHg (83.0-108.0); VENT MODE, BG SIMV, PS10 (ROOM AIR)
[2024-06-11 16:06] LABS: BASOPHILS # (AUTO) 0.09 K/uL (0.00-0.20); BASOPHILS % (AUTO) 0.4 % (0.0-5.0); HEMATOCRIT 25.2 % (42-54); IMMATURE GRANULOCYTE ABSOLUTE 0.64 K/uL (0-1); LYMPHOCYTES % (AUTO) 9.6 % (21.0-51.0); MEAN CORPUSCULAR HEMOGLOBIN 30.7 pg (27.0-33.0); MEAN CORPUSCULAR HGB CONC 33.3 g/dL (32.0-36.0); MONOCYTES # (AUTO) 1.7 K/uL (0.1-1.0); MONOCYTES % (AUTO) 8.4 % (3.0-13.0); NEUTROPHILS # (AUTO) 15.9 K/uL (1.8-7.7); NEUTROPHILS % (AUTO) 77.5 % (40.0-77.0); NUCLEATED RED BLOOD CELLS 1.1 % (0.0-0.19); PLATELET COUNT (AUTO) 68 K/uL (130-400); RED BLOOD CELL COUNT(AUTO) 2.74 MIL/uL (4.50-6.20); WHITE BLOOD COUNT (AUTO) 20.5 K/uL (4.8-10.8)
[2024-06-11 16:32] LABS: ALBUMIN 2.7 g/dL (3.5-5.0); CREATININE 2.1 mg/dL (0.5-1.3); POTASSIUM 4.2 mmol/L (3.5-5.1); TOTAL PROTEIN, SERUM 5.2 g/dL (6.0-8.3)
[2024-06-11 19:09] LABS: ABG BASE EXCESS 7.3 mmol/L (-2.0-3.0); ABG HCO3 30.9 mmol/L (21.0-28.0); ABG OXYGEN SATURATION 98.1 % (95.0-99.0); ABG PCO2 39 mmHg (35-48); ABG PH 7.512 (7.35-7.450); CARBON MONOXIDE 0.8; DEVICE COMMENT LINE RN JAROD; HHb 1.9; PO2, ARTERIAL BG 118.5 mmHg (83.0-108.0); VENT MODE, BG SIMV (ROOM AIR)
[2024-06-11 23:25] LABS: ABG HCO3 32.6 mmol/L (21.0-28.0); ABG OXYGEN SATURATION 97.5 % (95.0-99.0); ABG PCO2 41 mmHg (35-48); ABG PH 7.523 (7.35-7.450); CARBON MONOXIDE 0.9; DEVICE COMMENT LINE RN JARD; HHb 2.5; PO2, ARTERIAL BG 104.9 mmHg (83.0-108.0); VENT MODE, BG SIMV PS10 (ROOM AIR)
[2024-06-12] VITALS (124 sets, daily range): BP systolic 63–177; BP diastolic 41–247; PULSE 69–145; RESP 11–20; TEMP 97.9–102.3; O2SAT 97–100
[2024-06-12 02:44] LABS: ABG BASE EXCESS 8.1 mmol/L (-2.0-3.0); ABG HCO3 31.1 mmol/L (21.0-28.0); ABG OXYGEN SATURATION 97.5 % (95.0-99.0); ABG PCO2 37 mmHg (35-48); ABG PH 7.546 (7.35-7.450); DEVICE COMMENT LINE RN JAROD; HHb 2.5; PO2, ARTERIAL BG 101.8 mmHg (83.0-108.0); VENT MODE, BG SIMV PS10 (ROOM AIR)
[2024-06-12] MEDS: acetaMINOPHEN 1,000 MG/100 ML VIAL IV PRN (02:54)
[2024-06-12 04:25] LABS: BASOPHILS # (AUTO) 0.07 K/uL (0.00-0.20); BASOPHILS % (AUTO) 0.4 % (0.0-5.0); EOSINOPHILS # (AUTO) 0.15 K/uL (0.00-0.70); EOSINOPHILS % (AUTO) 0.9 % (0.0-8.0); HEMATOCRIT 23.5 % (42-54); IMMATURE GRANULOCYTE ABSOLUTE 0.37 K/uL (0-1); LYMPHOCYTES # (AUTO) 2.4 K/uL (1.0-4.8); MEAN CORPUSCULAR HEMOGLOBIN 31.1 pg (27.0-33.0); MEAN CORPUSCULAR HGB CONC 33.6 g/dL (32.0-36.0); MEAN CORPUSCULAR VOLUME 92.5 fL (79-99); MONOCYTES # (AUTO) 1.6 K/uL (0.1-1.0); MONOCYTES % (AUTO) 9.2 % (3.0-13.0); NEUTROPHILS # (AUTO) 12.4 K/uL (1.8-7.7); NEUTROPHILS % (AUTO) 73.3 % (40.0-77.0); NUCLEATED RED BLOOD CELLS 1.2 % (0.0-0.19); PLATELET COUNT (AUTO) 64 K/uL (130-400); RED BLOOD CELL COUNT(AUTO) 2.54 MIL/uL (4.50-6.20); RED CELL DISTRIBUTION WIDTH 16.2 % (11.0-15.5)
[2024-06-12 04:42] LABS: INR 1.2 (0.85-1.15); PROTHROMBIN TIME 12.8 SEC (9.6-11.6)
[2024-06-12 04:43] LABS: PARTIAL THROMBOPLASTIN TIME 35.7 SEC (26.3-35.5)
[2024-06-12 04:51] LABS: ALBUMIN 2.5 g/dL (3.5-5.0); BILIRUBIN,DIRECT 0.6 mg/dL (0.0-0.3); BILIRUBIN,TOTAL 1.7 mg/dL (0.2-1.0); CREATININE 2.1 mg/dL (0.5-1.3); POTASSIUM 3.9 mmol/L (3.5-5.1); TOTAL PROTEIN, SERUM 4.9 g/dL (6.0-8.3)
[2024-06-12 06:22] LABS: ABG HCO3 30.2 mmol/L (21.0-28.0); ABG OXYGEN SATURATION 98.1 % (95.0-99.0); ABG PCO2 37 mmHg (35-48); ABG PH 7.528 (7.35-7.450); CARBON MONOXIDE 0.8; HHb 1.9; VENT MODE, BG SIMV-VC PS10 (ROOM AIR)
[2024-06-12] MEDS: CALCIUM GLUC 1GM/10ML VIAL ONE (07:00)
[2024-06-12 08:39] LABS: PHOSPHORUS 3.9 mg/dL (2.5-4.9)
[2024-06-12 10:29] LABS: ABG BASE EXCESS 5.8 mmol/L (-2.0-3.0); ABG HCO3 28.7 mmol/L (21.0-28.0); ABG OXYGEN SATURATION 96.5 % (95.0-99.0); ABG PCO2 35 mmHg (35-48); ABG PH 7.536 (7.35-7.450); CARBON MONOXIDE 1.1; HHb 3.4; PO2, ARTERIAL BG 87.7 mmHg (83.0-108.0); VENT MODE, BG SIMV-VC PS10 (ROOM AIR)
[2024-06-12] MEDS: AMIOdarone 900MG VIAL 150 MG in DEXTROSE 5%-WATER 100 ML IV SCH (13:28)
[2024-06-12] MEDS: AMIOdarone 900MG VIAL 540 MG in DEXTROSE 5%-WATER 300 ML IV STA (13:35)
[2024-06-12] MEDS: AMIOdarone 900MG VIAL 360 MG in DEXTROSE 5%-WATER 200 ML IV SCH (13:47)
[2024-06-12 14:05] LABS: ABG BASE EXCESS 6.3 mmol/L (-2.0-3.0); ABG HCO3 29.6 mmol/L (21.0-28.0); ABG OXYGEN SATURATION 96.3 % (95.0-99.0); ABG PCO2 37 mmHg (35-48); ABG PH 7.517 (7.35-7.450); CARBON MONOXIDE 0.9; HHb 3.6; PO2, ARTERIAL BG 89.2 mmHg (83.0-108.0); VENT MODE, BG SIMV-VC PS10 (ROOM AIR)
[2024-06-12 15:49] LABS: BASOPHILS # (AUTO) 0.07 K/uL (0.00-0.20); BASOPHILS % (AUTO) 0.4 % (0.0-5.0); EOSINOPHILS # (AUTO) 0.28 K/uL (0.00-0.70); EOSINOPHILS % (AUTO) 1.7 % (0.0-8.0); HEMATOCRIT 23.5 % (42-54); LYMPHOCYTES # (AUTO) 2.1 K/uL (1.0-4.8); LYMPHOCYTES % (AUTO) 12.9 % (21.0-51.0); MEAN CORPUSCULAR HEMOGLOBIN 30.4 pg (27.0-33.0); MEAN CORPUSCULAR HGB CONC 33.2 g/dL (32.0-36.0); MEAN CORPUSCULAR VOLUME 91.4 fL (79-99); MONOCYTES # (AUTO) 1.7 K/uL (0.1-1.0); MONOCYTES % (AUTO) 10.2 % (3.0-13.0); NEUTROPHILS # (AUTO) 11.7 K/uL (1.8-7.7); NEUTROPHILS % (AUTO) 72.3 % (40.0-77.0); NUCLEATED RED BLOOD CELLS 0.7 % (0.0-0.19); PLATELET COUNT (AUTO) 49 K/uL (130-400); RED BLOOD CELL COUNT(AUTO) 2.57 MIL/uL (4.50-6.20); RED CELL DISTRIBUTION WIDTH 15.9 % (11.0-15.5); WHITE BLOOD COUNT (AUTO) 16.2 K/uL (4.8-10.8)
[2024-06-12 16:13] LABS: ALBUMIN 2.5 g/dL (3.5-5.0); CREATININE 1.9 mg/dL (0.5-1.3); POTASSIUM 4.3 mmol/L (3.5-5.1)
[2024-06-12] MEDS: proPOFol 1000 MG/100 ML IV PRN (17:33)
[2024-06-12 18:12] LABS: ABG BASE EXCESS 5.6 mmol/L (-2.0-3.0); ABG HCO3 28.6 mmol/L (21.0-28.0); ABG OXYGEN SATURATION 97.4 % (95.0-99.0); ABG PCO2 35 mmHg (35-48); ABG PH 7.529 (7.35-7.450); CARBON MONOXIDE 1.1; DEVICE COMMENT SILVIA RN ,AL; HHb 2.6; PO2, ARTERIAL BG 108.4 mmHg (83.0-108.0); VENT MODE, BG SIMV PS 10 (ROOM AIR)
[2024-06-12] MEDS: AMIODARONE 540 MG/D5W 300ML (0.5MG/MIN) IV SCH (19:55)
[2024-06-12] MEDS: acetaMINOPHEN 325 MG TAB PO PRN (21:42)
[2024-06-12 21:56] LABS: ABG BASE EXCESS 5.3 mmol/L (-2.0-3.0); ABG HCO3 28.6 mmol/L (21.0-28.0); ABG OXYGEN SATURATION 97.3 % (95.0-99.0); ABG PCO2 36 mmHg (35-48); ABG PH 7.513 (7.35-7.450); HHb 2.6; PO2, ARTERIAL BG 106.3 mmHg (83.0-108.0); VENT MODE, BG SIMV PS 10 (ROOM AIR)
[2024-06-13] VITALS (96 sets, daily range): BP systolic 83–141; BP diastolic 44–73; PULSE 76–124; RESP 12–19; TEMP 99–99.5; O2SAT 97–99
[2024-06-13] MEDS: INSULIN REGULAR, HUMAN 3ML 100 UNIT in 0.9%NACL 100ML 99 ML IV SCH (00:15)
[2024-06-13] MEDS: EPINEPHrine 1 MG/ML 30ML VIAL IJ ONE (00:24)
[2024-06-13 01:26] LABS: ABG BASE EXCESS 5.5 mmol/L (-2.0-3.0); ABG HCO3 28.9 mmol/L (21.0-28.0); ABG OXYGEN SATURATION 97.5 % (95.0-99.0); ABG PCO2 37 mmHg (35-48); ABG PH 7.509 (7.35-7.450); CARBON MONOXIDE 0.9; HHb 2.5; VENT MODE, BG SIMV,PS10 (ROOM AIR)
[2024-06-13 04:50] LABS: BASOPHILS # (AUTO) 0.08 K/uL (0.00-0.20); BASOPHILS % (AUTO) 0.5 % (0.0-5.0); EOSINOPHILS # (AUTO) 0.36 K/uL (0.00-0.70); EOSINOPHILS % (AUTO) 2.1 % (0.0-8.0); IMMATURE GRANULOCYTE ABSOLUTE 0.51 K/uL (0-1); LYMPHOCYTES # (AUTO) 2.2 K/uL (1.0-4.8); LYMPHOCYTES % (AUTO) 13.1 % (21.0-51.0); MEAN CORPUSCULAR HGB CONC 32.4 g/dL (32.0-36.0); MEAN CORPUSCULAR VOLUME 92.6 fL (79-99); MONOCYTES # (AUTO) 1.9 K/uL (0.1-1.0); MONOCYTES % (AUTO) 11.3 % (3.0-13.0); NUCLEATED RED BLOOD CELLS 0.7 % (0.0-0.19); PLATELET COUNT (AUTO) 48 K/uL (130-400); RED CELL DISTRIBUTION WIDTH 15.6 % (11.0-15.5); WHITE BLOOD COUNT (AUTO) 17.1 K/uL (4.8-10.8)
[2024-06-13 04:59] LABS: INR 1.13 (0.85-1.15); PROTHROMBIN TIME 12.1 SEC (9.6-11.6)
[2024-06-13 05:15] LABS: ALBUMIN 2.4 g/dL (3.5-5.0); BILIRUBIN,DIRECT 0.8 mg/dL (0.0-0.3); CREATININE 1.9 mg/dL (0.5-1.3); POTASSIUM 4.2 mmol/L (3.5-5.1); TOTAL PROTEIN, SERUM 5.3 g/dL (6.0-8.3)
[2024-06-13 05:24] LABS: PARTIAL THROMBOPLASTIN TIME 40.2 SEC (26.3-35.5)
[2024-06-13 05:31] LABS: ABG BASE EXCESS 4.5 mmol/L (-2.0-3.0); ABG HCO3 27.7 mmol/L (21.0-28.0); ABG OXYGEN SATURATION 97.4 % (95.0-99.0); ABG PCO2 35 mmHg (35-48); ABG PH 7.511 (7.35-7.450); CARBON MONOXIDE 0.9; HHb 2.6; PO2, ARTERIAL BG 108.3 mmHg (83.0-108.0); VENT MODE, BG SIMV,PS10 (ROOM AIR)
[2024-06-13] MEDS: CALCIUM GLUC 1GM/10ML VIAL ONE (05:54)
[2024-06-13 06:48] LABS: MAGNESIUM 1.9 mg/dL (1.80-2.40); PHOSPHORUS 6.4 mg/dL (2.5-4.9)
[2024-06-13 07:20] LABS: ABG BASE EXCESS 4.9 mmol/L (-2.0-3.0); ABG HCO3 27.9 mmol/L (21.0-28.0); ABG OXYGEN SATURATION 94.8 % (95.0-99.0); ABG PCO2 35 mmHg (35-48); ABG PH 7.523 (7.35-7.450); CARBON MONOXIDE 1.2; HHb 5.1; PO2, ARTERIAL BG 75.1 mmHg (83.0-108.0); VENT MODE, BG SIMV PS 10 (ROOM AIR)
[2024-06-13 11:15] LABS: ABG BASE EXCESS 6.3 mmol/L (-2.0-3.0); ABG HCO3 29.5 mmol/L (21.0-28.0); ABG OXYGEN SATURATION 95.3 % (95.0-99.0); ABG PCO2 36 mmHg (35-48); ABG PH 7.526 (7.35-7.450); CARBON MONOXIDE 0.7; DEVICE COMMENT ALINE; HHb 4.6; PO2, ARTERIAL BG 80.2 mmHg (83.0-108.0)
[2024-06-13] MEDS: EPINEPHrine PF 1MG (1:1,000) 10 MG in 0.9% NACL 250ML 250 ML IV SCH (14:56)
[2024-06-13 15:55] LABS: ABG BASE EXCESS 3.9 mmol/L (-2.0-3.0); ABG HCO3 26.9 mmol/L (21.0-28.0); ABG OXYGEN SATURATION 96.4 % (95.0-99.0); ABG PCO2 34 mmHg (35-48); ABG PH 7.513 (7.35-7.450); CARBON MONOXIDE 0.8; DEVICE COMMENT ALINE; HHb 3.5; PO2, ARTERIAL BG 92.1 mmHg (83.0-108.0); VENT MODE, BG SIMV (ROOM AIR)
[2024-06-13 16:07] LABS: BASOPHILS % (AUTO) 0.6 % (0.0-5.0); EOSINOPHILS # (AUTO) 0.49 K/uL (0.00-0.70); EOSINOPHILS % (AUTO) 2.8 % (0.0-8.0); HEMATOCRIT 25.1 % (42-54); IMMATURE GRANULOCYTE ABSOLUTE 0.84 K/uL (0-1); LYMPHOCYTES # (AUTO) 2.1 K/uL (1.0-4.8); LYMPHOCYTES % (AUTO) 11.8 % (21.0-51.0); MEAN CORPUSCULAR HEMOGLOBIN 30.3 pg (27.0-33.0); MEAN CORPUSCULAR HGB CONC 32.3 g/dL (32.0-36.0); MONOCYTES % (AUTO) 11.2 % (3.0-13.0); NEUTROPHILS # (AUTO) 12.2 K/uL (1.8-7.7); NEUTROPHILS % (AUTO) 68.8 % (40.0-77.0); NUCLEATED RED BLOOD CELLS 0.4 % (0.0-0.19); PLATELET COUNT (AUTO) 44 K/uL (130-400); RED BLOOD CELL COUNT(AUTO) 2.67 MIL/uL (4.50-6.20); RED CELL DISTRIBUTION WIDTH 15.4 % (11.0-15.5); WHITE BLOOD COUNT (AUTO) 17.7 K/uL (4.8-10.8)
[2024-06-13 16:22] LABS: ALBUMIN 2.3 g/dL (3.5-5.0); BILIRUBIN,TOTAL 1.9 mg/dL (0.2-1.0); CREATININE 1.8 mg/dL (0.5-1.3); POTASSIUM 3.9 mmol/L (3.5-5.1); TOTAL PROTEIN, SERUM 5.2 g/dL (6.0-8.3)
[2024-06-13 19:42] LABS: ABG BASE EXCESS 4.5 mmol/L (-2.0-3.0); ABG HCO3 27.9 mmol/L (21.0-28.0); ABG OXYGEN SATURATION 97.3 % (95.0-99.0); ABG PCO2 37 mmHg (35-48); CARBON MONOXIDE 0.9; HHb 2.7; PO2, ARTERIAL BG 107.1 mmHg (83.0-108.0); VENT MODE, BG SIMV PS 10 (ROOM AIR)
[2024-06-13 23:07] LABS: ABG BASE EXCESS 5.2 mmol/L (-2.0-3.0); ABG HCO3 28.6 mmol/L (21.0-28.0); ABG PCO2 37 mmHg (35-48); ABG PH 7.505 (7.35-7.450); CARBON MONOXIDE 0.8; HHb 3.9; PO2, ARTERIAL BG 87.7 mmHg (83.0-108.0); VENT MODE, BG SIMV PS 10 (ROOM AIR)
[2024-06-14] VITALS (101 sets, daily range): BP systolic 41–144; BP diastolic 32–72; PULSE 79–115; RESP 12–28; TEMP 98.8–101.6; O2SAT 99–100
[2024-06-14 03:37] LABS: ABG BASE EXCESS 5.1 mmol/L (-2.0-3.0); ABG HCO3 28.6 mmol/L (21.0-28.0); ABG OXYGEN SATURATION 97.7 % (95.0-99.0); ABG PCO2 38 mmHg (35-48); ABG PH 7.499 (7.35-7.450); CARBON MONOXIDE 0.2; HHb 2.3; VENT MODE, BG SIMV,PS10 (ROOM AIR)
[2024-06-14 03:45] LABS: ABG BASE EXCESS 4.4 mmol/L (-2.0-3.0); ABG HCO3 27.9 mmol/L (21.0-28.0); ABG OXYGEN SATURATION 97.5 % (95.0-99.0); ABG PCO2 37 mmHg (35-48); ABG PH 7.497 (7.35-7.450); CARBON MONOXIDE 0.3; HHb 2.5; PO2, ARTERIAL BG 107.5 mmHg (83.0-108.0); VENT MODE, BG SIMV, PS10 (ROOM AIR)
[2024-06-14] MEDS: CALCIUM GLUC 1GM/10ML VIAL ONE (04:51)
[2024-06-14 06:02] LABS: HEMATOCRIT 24.4 % (42-54); MEAN CORPUSCULAR HEMOGLOBIN 30.9 pg (27.0-33.0); MEAN CORPUSCULAR HGB CONC 33.6 g/dL (32.0-36.0); MEAN CORPUSCULAR VOLUME 92.1 fL (79-99); NUCLEATED RED BLOOD CELLS 0.3 % (0.0-0.19); RED BLOOD CELL COUNT(AUTO) 2.65 MIL/uL (4.50-6.20); RED CELL DISTRIBUTION WIDTH 15.1 % (11.0-15.5); WHITE BLOOD COUNT (AUTO) 18.7 K/uL (4.8-10.8)
[2024-06-14 06:18] LABS: ALBUMIN 2.1 g/dL (3.5-5.0); BILIRUBIN,TOTAL 1.6 mg/dL (0.2-1.0); CREATININE 1.7 mg/dL (0.5-1.3); MAGNESIUM 2.1 mg/dL (1.80-2.40); POTASSIUM 4.3 mmol/L (3.5-5.1); TOTAL PROTEIN, SERUM 5.2 g/dL (6.0-8.3)
[2024-06-14 07:08] LABS: ABG BASE EXCESS 4.6 mmol/L (-2.0-3.0); ABG HCO3 28.3 mmol/L (21.0-28.0); ABG OXYGEN SATURATION 97.6 % (95.0-99.0); ABG PCO2 38 mmHg (35-48); ABG PH 7.486 (7.35-7.450); CARBON MONOXIDE 0.8; HHb 2.4; PO2, ARTERIAL BG 110.7 mmHg (83.0-108.0); VENT MODE, BG SIMV, PS10 (ROOM AIR)
[2024-06-14 11:15] LABS: ABG BASE EXCESS 2.9 mmol/L (-2.0-3.0); ABG HCO3 26.4 mmol/L (21.0-28.0); ABG PCO2 36 mmHg (35-48); ABG PH 7.482 (7.35-7.450); PO2, ARTERIAL BG 97.6 mmHg (83.0-108.0); VENT MODE, BG SIMV, PS10 (ROOM AIR)
[2024-06-14 12:55] LABS: BASOPHILS # (AUTO) 0.13 K/uL (0.00-0.20); BASOPHILS % (AUTO) 0.7 % (0.0-5.0); EOSINOPHILS # (AUTO) 0.33 K/uL (0.00-0.70); EOSINOPHILS % (AUTO) 1.7 % (0.0-8.0); HEMATOCRIT 24.3 % (42-54); IMMATURE GRANULOCYTE ABSOLUTE 1.41 K/uL (0-1); LYMPHOCYTES # (AUTO) 2.1 K/uL (1.0-4.8); LYMPHOCYTES % (AUTO) 10.6 % (21.0-51.0); MEAN CORPUSCULAR HEMOGLOBIN 30.4 pg (27.0-33.0); MEAN CORPUSCULAR HGB CONC 32.5 g/dL (32.0-36.0); MEAN CORPUSCULAR VOLUME 93.5 fL (79-99); MONOCYTES # (AUTO) 2.4 K/uL (0.1-1.0); MONOCYTES % (AUTO) 12.2 % (3.0-13.0); NEUTROPHILS # (AUTO) 13.2 K/uL (1.8-7.7); NEUTROPHILS % (AUTO) 67.6 % (40.0-77.0); NUCLEATED RED BLOOD CELLS 0.2 % (0.0-0.19); PLATELET COUNT (AUTO) 53 K/uL (130-400); RED CELL DISTRIBUTION WIDTH 15.4 % (11.0-15.5); WHITE BLOOD COUNT (AUTO) 19.5 K/uL (4.8-10.8)
[2024-06-14] MEDS: fluCONazole 200 MG/NS 100 ML IVPB SCH (13:45)
[2024-06-14] MEDS ORDERED: VANCOMYCIN PROTOCOL PER PHARMACY IV SCH (14:00)
[2024-06-14] MEDS ORDERED: VANCOMYCIN 2GM/500 ML BAG 500 ML IV ONE (14:00)
[2024-06-14] MEDS: AMIOdarone 150MG VIAL 150 MG in DEXTROSE 5%-WATER 100 ML IV SCH (14:12)
[2024-06-14] MEDS: VANCOMYCIN 2GM/500 ML BAG 500 ML IV ONE (15:00)
[2024-06-14 15:20] LABS: ABG BASE EXCESS 2.7 mmol/L (-2.0-3.0); ABG HCO3 26.1 mmol/L (21.0-28.0); ABG OXYGEN SATURATION 97.7 % (95.0-99.0); ABG PCO2 36 mmHg (35-48); ABG PH 7.485 (7.35-7.450); CARBON MONOXIDE 0.9; HHb 2.3; PO2, ARTERIAL BG 116.7 mmHg (83.0-108.0); VENT MODE, BG SIMV, PS10 (ROOM AIR)
[2024-06-14 19:34] LABS: ABG BASE EXCESS 5.3 mmol/L (-2.0-3.0); ABG HCO3 28.8 mmol/L (21.0-28.0); ABG OXYGEN SATURATION 97.9 % (95.0-99.0); ABG PCO2 38 mmHg (35-48); ABG PH 7.499 (7.35-7.450); CARBON MONOXIDE 1.1; HHb 2.1; PO2, ARTERIAL BG 116.4 mmHg (83.0-108.0); VENT MODE, BG SIMV P10 (ROOM AIR)
[2024-06-14] MEDS: HEParin 25,000 UNITS/250ML D5W 250 ML IV SCH (20:19)
[2024-06-14] MEDS: furoSEMIDE 40MG VIAL IV SCH (20:23)
[2024-06-14 23:01] LABS: ABG BASE EXCESS 2.8 mmol/L (-2.0-3.0); ABG HCO3 26.5 mmol/L (21.0-28.0); ABG PCO2 37 mmHg (35-48); CARBON MONOXIDE 1.2; HHb 2.9; PO2, ARTERIAL BG 102.1 mmHg (83.0-108.0); VENT MODE, BG SIMV PS 10 (ROOM AIR)
[2024-06-15] VITALS (127 sets, daily range): BP systolic 74–136; BP diastolic 36–87; PULSE 74–132; RESP 8–33; TEMP 97.6–101.3; O2SAT 99–100
[2024-06-15 02:58] LABS: ABG BASE EXCESS 2.5 mmol/L (-2.0-3.0); ABG HCO3 26.3 mmol/L (21.0-28.0); ABG OXYGEN SATURATION 97.9 % (95.0-99.0); ABG PCO2 37 mmHg (35-48); ABG PH 7.467 (7.35-7.450); CARBON MONOXIDE 1.2; DEVICE COMMENT A LINE; HHb 2.1; VENT MODE, BG PS SIMV (ROOM AIR)
[2024-06-15 03:57] LABS: HEMATOCRIT 23.3 % (42-54); MEAN CORPUSCULAR HEMOGLOBIN 30.7 pg (27.0-33.0); MEAN CORPUSCULAR HGB CONC 32.2 g/dL (32.0-36.0); MEAN CORPUSCULAR VOLUME 95.5 fL (79-99); NUCLEATED RED BLOOD CELLS 0.2 % (0.0-0.19); RED BLOOD CELL COUNT(AUTO) 2.44 MIL/uL (4.50-6.20); RED CELL DISTRIBUTION WIDTH 16.1 % (11.0-15.5); WHITE BLOOD COUNT (AUTO) 19.9 K/uL (4.8-10.8)
[2024-06-15 04:12] LABS: INR 1.11 (0.85-1.15); PROTHROMBIN TIME 11.9 SEC (9.6-11.6)
[2024-06-15 04:13] LABS: PARTIAL THROMBOPLASTIN TIME 52.1 SEC (26.3-35.5)
[2024-06-15 04:23] LABS: ALBUMIN 1.9 g/dL (3.5-5.0); BILIRUBIN,TOTAL 1.5 mg/dL (0.2-1.0); CREATININE 1.6 mg/dL (0.5-1.3); PHOSPHORUS 4.7 mg/dL (2.5-4.9); TOTAL PROTEIN, SERUM 4.9 g/dL (6.0-8.3)
[2024-06-15] MEDS: AMIOdarone 900MG VIAL 540 MG in DEXTROSE 5%-WATER 300 ML IV SCH (06:51)
[2024-06-15 07:01] LABS: ABG BASE EXCESS 4.2 mmol/L (-2.0-3.0); ABG HCO3 27.3 mmol/L (21.0-28.0); ABG OXYGEN SATURATION 98.2 % (95.0-99.0); ABG PCO2 35 mmHg (35-48); ABG PH 7.513 (7.35-7.450); CARBON MONOXIDE 1.1; HHb 1.8; VENT MODE, BG SIMV (ROOM AIR)
[2024-06-15] MEDS: ceFEPime HCL 2 GM VIAL IVPB SCH (10:49)
[2024-06-15 11:34] LABS: ABG BASE EXCESS 2.2 mmol/L (-2.0-3.0); ABG HCO3 25.8 mmol/L (21.0-28.0); ABG OXYGEN SATURATION 97.9 % (95.0-99.0); ABG PCO2 35 mmHg (35-48); CARBON MONOXIDE 1.4; HHb 2.1; PO2, ARTERIAL BG 114.1 mmHg (83.0-108.0); VENT MODE, BG SIMV (ROOM AIR)
[2024-06-15 15:26] LABS: ABG BASE EXCESS 2.7 mmol/L (-2.0-3.0); ABG OXYGEN SATURATION 97.3 % (95.0-99.0); ABG PCO2 41 mmHg (35-48); ABG PH 7.442 (7.35-7.450); HHb 2.7; PO2, ARTERIAL BG 104.3 mmHg (83.0-108.0); VENT MODE, BG SIMV (ROOM AIR)
[2024-06-15] MEDS: VANCOMYCIN 1.25 GM/250 ML BAG 250 ML IV SCH (15:47)
[2024-06-15 19:14] LABS: ABG OXYGEN SATURATION 96.9 % (95.0-99.0); ABG PCO2 39 mmHg (35-48); ABG PH 7.463 (7.35-7.450); CARBON MONOXIDE 1.5; PO2, ARTERIAL BG 95.9 mmHg (83.0-108.0); VENT MODE, BG AIINE SIMV (ROOM AIR)
[2024-06-15] MEDS: furoSEMIDE 100MG VIAL 100 MG in 0.9%NACL 100ML 100 ML IV SCH (19:14)
[2024-06-15 23:24] LABS: ABG BASE EXCESS 1.7 mmol/L (-2.0-3.0); ABG HCO3 25.9 mmol/L (21.0-28.0); ABG OXYGEN SATURATION 97.1 % (95.0-99.0); ABG PCO2 39 mmHg (35-48); ABG PH 7.442 (7.35-7.450); CARBON MONOXIDE 1.2; DEVICE COMMENT MARISSA RN; HHb 2.8; PO2, ARTERIAL BG 98.6 mmHg (83.0-108.0)
[2024-06-16] VITALS (89 sets, daily range): BP systolic 73–166; BP diastolic 45–94; PULSE 75–134; RESP 12–53; TEMP 98.6–102.3; O2SAT 70–100
[2024-06-16 03:11] LABS: ABG BASE EXCESS 0.8 mmol/L (-2.0-3.0); ABG PCO2 38 mmHg (35-48); ABG PH 7.438 (7.35-7.450); CARBON MONOXIDE 1.2; HHb 2.9; PO2, ARTERIAL BG 98.5 mmHg (83.0-108.0); VENT MODE, BG SIMV ALINE (ROOM AIR)
[2024-06-16] MEDS: SODIUM BICARB 50MEQ 50ML VIAL 25 MEQ in DEXTROSE 5%-WATER 1,000 ML IV PRN (03:16)
[2024-06-16 04:03] LABS: BASOPHILS # (AUTO) 0.15 K/uL (0.00-0.20); BASOPHILS % (AUTO) 0.6 % (0.0-5.0); EOSINOPHILS # (AUTO) 0.69 K/uL (0.00-0.70); HEMATOCRIT 25.3 % (42-54); IMMATURE GRANULOCYTE ABSOLUTE 2.63 K/uL (0-1); LYMPHOCYTES % (AUTO) 8.4 % (21.0-51.0); MEAN CORPUSCULAR HEMOGLOBIN 30.6 pg (27.0-33.0); MEAN CORPUSCULAR HGB CONC 32.8 g/dL (32.0-36.0); MEAN CORPUSCULAR VOLUME 93.4 fL (79-99); MONOCYTES # (AUTO) 2.4 K/uL (0.1-1.0); MONOCYTES % (AUTO) 10.2 % (3.0-13.0); NEUTROPHILS # (AUTO) 15.5 K/uL (1.8-7.7); NEUTROPHILS % (AUTO) 66.5 % (40.0-77.0); NUCLEATED RED BLOOD CELLS 0.1 % (0.0-0.19); PLATELET COUNT (AUTO) 85 K/uL (130-400); RED BLOOD CELL COUNT(AUTO) 2.71 MIL/uL (4.50-6.20); RED CELL DISTRIBUTION WIDTH 16.4 % (11.0-15.5); WHITE BLOOD COUNT (AUTO) 23.3 K/uL (4.8-10.8)
[2024-06-16 04:14] LABS: INR 1.11 (0.85-1.15); PROTHROMBIN TIME 11.9 SEC (9.6-11.6)
[2024-06-16 04:16] LABS: PARTIAL THROMBOPLASTIN TIME 32.6 SEC (26.3-35.5)
[2024-06-16 04:19] LABS: CARBON DIOXIDE 26 mmol/L (21-32); CHLORIDE 106 mmol/L (101-111); CREATININE 1.3 mg/dL (0.5-1.3); GLOMERULAR FILTR. RATE CALC 59 mL/min (>90); GLUCOSE,RANDOM 133 mg/dL (70-105); PHOSPHORUS 3.9 mg/dL (2.5-4.9); POTASSIUM 4.2 mmol/L (3.5-5.1); SODIUM SERUM 140 mmol/L (136-145); UREA NITROGEN, BLOOD 28 mg/dL (7-18)
[2024-06-16] MEDS: furoSEMIDE 100MG VIAL 10 MG/ML VIAL ONE (05:17)
[2024-06-16 06:58] LABS: ABG BASE EXCESS 1.7 mmol/L (-2.0-3.0); ABG HCO3 25.8 mmol/L (21.0-28.0); ABG OXYGEN SATURATION 96.7 % (95.0-99.0); ABG PCO2 39 mmHg (35-48); ABG PH 7.444 (7.35-7.450); HHb 3.2; PO2, ARTERIAL BG 96.5 mmHg (83.0-108.0); VENT MODE, BG SIMV (ROOM AIR)
[2024-06-16] MEDS ORDERED: LIDOCAINE HCL 400MG/20ML VIAL ONE (07:31)
[2024-06-16] MEDS ORDERED: IOHEXOL 350 MG/ML 100ML INFUS..BTL IV ONE (07:32)
[2024-06-16] MEDS ORDERED: HEParin-NS 1,000 UNIT/500 ML 500 ML IV ONE (07:32)
[2024-06-16] MEDS ORDERED: HEParin 10,000 UNIT/10ML (1,000 UNIT/ML) VIAL ONE (07:32)
[2024-06-16] MEDS ORDERED: SODIUM BICARB 50MEQ 50ML VIAL 50 ML ONE (08:09)
[2024-06-16] MEDS ORDERED: VANCOMYCIN 1G/250ML KIT 250 ML IV ONE (08:22)
[2024-06-16 10:03] LABS: ABG BASE EXCESS -1.8 mmol/L (-2.0-3.0); ABG HCO3 22.5 mmol/L (21.0-28.0); ABG OXYGEN SATURATION 92.4 % (95.0-99.0); ABG PCO2 36 mmHg (35-48); ABG PH 7.412 (7.35-7.450); CARBON MONOXIDE 1.2; HHb 7.5; PO2, ARTERIAL BG 67.2 mmHg (83.0-108.0); VENT MODE, BG SIMV (ROOM AIR)
[2024-06-16] MEDS: ARGATROBAN IV PRN (10:24)
[2024-06-16] MEDS: NACL 0.9% IV PRN (10:24)
[2024-06-16] MEDS: FENTanyl 1000MCG+NS 100ML 100 ML IV SCH (10:30)
[2024-06-16 10:34] LABS: BASOPHILS # (AUTO) 0.13 K/uL (0.00-0.20); BASOPHILS % (AUTO) 0.6 % (0.0-5.0); EOSINOPHILS # (AUTO) 0.46 K/uL (0.00-0.70); EOSINOPHILS % (AUTO) 1.9 % (0.0-8.0); HEMATOCRIT 25.1 % (42-54); IMMATURE GRANULOCYTE ABSOLUTE 2.64 K/uL (0-1); LYMPHOCYTES # (AUTO) 1.7 K/uL (1.0-4.8); LYMPHOCYTES % (AUTO) 7.1 % (21.0-51.0); MEAN CORPUSCULAR HEMOGLOBIN 30.3 pg (27.0-33.0); MEAN CORPUSCULAR HGB CONC 32.3 g/dL (32.0-36.0); MONOCYTES # (AUTO) 2.4 K/uL (0.1-1.0); MONOCYTES % (AUTO) 10.2 % (3.0-13.0); NEUTROPHILS # (AUTO) 16.3 K/uL (1.8-7.7); NUCLEATED RED BLOOD CELLS 0.1 % (0.0-0.19); PLATELET COUNT (AUTO) 93 K/uL (130-400); RED BLOOD CELL COUNT(AUTO) 2.67 MIL/uL (4.50-6.20); WHITE BLOOD COUNT (AUTO) 23.6 K/uL (4.8-10.8)
[2024-06-16 10:38] LABS: CREATININE 1.3 mg/dL (0.5-1.3); MAGNESIUM 2.2 mg/dL (1.80-2.40); POTASSIUM 4.2 mmol/L (3.5-5.1)
[2024-06-16 10:41] LABS: INR 1.11 (0.85-1.15); PROTHROMBIN TIME 11.9 SEC (9.6-11.6)
[2024-06-16 11:14] LABS: ABG HCO3 22.4 mmol/L (21.0-28.0); ABG OXYGEN SATURATION 95.3 % (95.0-99.0); ABG PCO2 37 mmHg (35-48); ABG PH 7.405 (7.35-7.450); CARBON MONOXIDE 0.6; HHb 4.6; VENT MODE, BG SIMV (ROOM AIR)
[2024-06-16] MEDS: SODIUM BICARB 50MEQ 50ML VIAL IV PRN (11:34)
[2024-06-16 12:57] LABS: ABG BASE EXCESS -0.7 mmol/L (-2.0-3.0); ABG HCO3 23.7 mmol/L (21.0-28.0); ABG PCO2 38 mmHg (35-48); ABG PH 7.418 (7.35-7.450); CARBON MONOXIDE 0.9; PO2, ARTERIAL BG 99.2 mmHg (83.0-108.0); VENT MODE, BG SIMV-VC PS10 (ROOM AIR)
[2024-06-16] MEDS: ALBUMIN (HUMAN) 5% 250 ML IV ONE (12:58)
[2024-06-16] MEDS ORDERED: ALBUMIN (HUMAN) 5% 250 ML IV PRN (13:00)
[2024-06-16] MEDS: acetaMINOPHEN 650 MG SUPPOSITORY RC PRN (13:37)
[2024-06-16 15:22] LABS: ABG BASE EXCESS 1.1 mmol/L (-2.0-3.0); ABG HCO3 24.8 mmol/L (21.0-28.0); ABG OXYGEN SATURATION 94.9 % (95.0-99.0); ABG PCO2 36 mmHg (35-48); ABG PH 7.459 (7.35-7.450); PO2, ARTERIAL BG 77.1 mmHg (83.0-108.0); VENT MODE, BG SIMV-VC PS10 (ROOM AIR)
[2024-06-16] MEDS ORDERED: MIDAZOLAM HCL 1 MG/ML 2ML VIAL ONE (16:06)
[2024-06-16] MEDS ORDERED: proPOFol 10 MG/ML 20ML VIAL IV ONE (16:06)
[2024-06-16] MEDS ORDERED: rocuRONium bROMide 10MG/1ML 5ML VL ONE (16:07)
[2024-06-16 16:09] LABS: ABG BASE EXCESS 0.1 mmol/L (-2.0-3.0); ABG HCO3 23.4 mmol/L (21.0-28.0); ABG OXYGEN SATURATION 97.9 % (95.0-99.0); ABG PCO2 33 mmHg (35-48); ABG PH 7.476 (7.35-7.450); CARBON MONOXIDE 1.1; DEVICE COMMENT ALINE; HHb 2.1; PO2, ARTERIAL BG 119.1 mmHg (83.0-108.0); VENT MODE, BG SIMV (ROOM AIR)
[2024-06-16] MEDS ORDERED: FENTanyl CITRate PF 50 MCG/1 ML 5ML AMP IV ONE (16:10)
[2024-06-16] MEDS ORDERED: phenylEPHRINE HCL 10 MG/ML 1ML VIAL IV ONE (16:26)
[2024-06-16 17:34] LABS: ABG HCO3 24.7 mmol/L (21.0-28.0); ABG OXYGEN SATURATION 97.6 % (95.0-99.0); ABG PCO2 36 mmHg (35-48); ABG PH 7.461 (7.35-7.450); CARBON MONOXIDE 0.4; HHb 2.4; PO2, ARTERIAL BG 107.5 mmHg (83.0-108.0); VENT MODE, BG AC (ROOM AIR)
[2024-06-16 19:30] LABS: ABG HCO3 24.1 mmol/L (21.0-28.0); ABG PCO2 33 mmHg (35-48); ABG PH 7.484 (7.35-7.450); CARBON MONOXIDE 0.3; DEVICE COMMENT ALINE; PO2, ARTERIAL BG 95.2 mmHg (83.0-108.0); VENT MODE, BG AC (ROOM AIR)
[2024-06-16] MEDS: FAMOTIDINE 20MG VIAL IV SCH (19:41)
[2024-06-16] MEDS: VANCOMYCIN 1G/250ML KIT 250 ML IV SCH (19:42)
[2024-06-16] MEDS: AMIODARONE 360 MG in DEXTROSE 5%-WATER 200 ML IV SCH (20:08)
[2024-06-16 23:26] LABS: ABG BASE EXCESS 1.6 mmol/L (-2.0-3.0); ABG HCO3 25.4 mmol/L (21.0-28.0); ABG PCO2 36 mmHg (35-48); ABG PH 7.462 (7.35-7.450); CARBON MONOXIDE 0.5; DEVICE COMMENT ALINE; HHb 6.9; PO2, ARTERIAL BG 67.8 mmHg (83.0-108.0); VENT MODE, BG AC (ROOM AIR)
[2024-06-16] MEDS: acetaMINOPHEN 650 MG/20.3 ML UDCUP PEG PRN (23:31)
[2024-06-17] VITALS (99 sets, daily range): BP systolic 89–292; BP diastolic 49–84; PULSE 70–90; RESP 11–45; TEMP 97.7–100.9; O2SAT 95–100
[2024-06-17 00:26] LABS: ABG BASE EXCESS 0.4 mmol/L (-2.0-3.0); ABG HCO3 23.8 mmol/L (21.0-28.0); ABG OXYGEN SATURATION 96.9 % (95.0-99.0); ABG PCO2 33 mmHg (35-48); ABG PH 7.471 (7.35-7.450); CARBON MONOXIDE 0.6; DEVICE COMMENT ALINE; HHb 3.1; PO2, ARTERIAL BG 94.8 mmHg (83.0-108.0); VENT MODE, BG AC (ROOM AIR)
[2024-06-17 02:48] LABS: HEMATOCRIT 25.8 % (42-54); MEAN CORPUSCULAR HEMOGLOBIN 30.6 pg (27.0-33.0); MEAN CORPUSCULAR HGB CONC 32.9 g/dL (32.0-36.0); MEAN CORPUSCULAR VOLUME 92.8 fL (79-99); RED BLOOD CELL COUNT(AUTO) 2.78 MIL/uL (4.50-6.20); RED CELL DISTRIBUTION WIDTH 16.1 % (11.0-15.5); WHITE BLOOD COUNT (AUTO) 21.4 K/uL (4.8-10.8)
[2024-06-17 03:03] LABS: PARTIAL THROMBOPLASTIN TIME 82.5 SEC (26.3-35.5)
[2024-06-17 03:04] LABS: ALBUMIN 1.7 g/dL (3.5-5.0); BILIRUBIN,TOTAL 1.2 mg/dL (0.2-1.0); CREATININE 1.3 mg/dL (0.5-1.3); POTASSIUM 3.6 mmol/L (3.5-5.1)
[2024-06-17 03:33] LABS: INR 2.41 (0.85-1.15); PROTHROMBIN TIME 24.4 SEC (9.6-11.6)
[2024-06-17 04:18] LABS: ABG BASE EXCESS 1.5 mmol/L (-2.0-3.0); ABG OXYGEN SATURATION 96.9 % (95.0-99.0); ABG PCO2 30 mmHg (35-48); ABG PH 7.516 (7.35-7.450); CARBON MONOXIDE 0.1; DEVICE COMMENT ALINE; HHb 3.1; PO2, ARTERIAL BG 96.6 mmHg (83.0-108.0); VENT MODE, BG AC (ROOM AIR)
[2024-06-17 07:53] LABS: ABG BASE EXCESS 3.9 mmol/L (-2.0-3.0); ABG HCO3 27.1 mmol/L (21.0-28.0); ABG OXYGEN SATURATION 97.6 % (95.0-99.0); ABG PCO2 35 mmHg (35-48); ABG PH 7.504 (7.35-7.450); CARBON MONOXIDE 0.3; HHb 2.4; PO2, ARTERIAL BG 107.8 mmHg (83.0-108.0); VENT MODE, BG AC (ROOM AIR)
[2024-06-17 12:08] LABS: ABG BASE EXCESS -0.3 mmol/L (-2.0-3.0); ABG HCO3 22.1 mmol/L (21.0-28.0); ABG OXYGEN SATURATION 98.3 % (95.0-99.0); ABG PCO2 28 mmHg (35-48); ABG PH 7.512 (7.35-7.450); CARBON MONOXIDE 0.4; HHb 1.7; PO2, ARTERIAL BG 131.7 mmHg (83.0-108.0)
[2024-06-17] MEDS: PHARMACY COMMUNICATION MISC SCH (14:30)
[2024-06-17] MEDS ORDERED: rocuRONium bROMide 10MG/1ML 5ML VL ONE ×2 (14:55→16:24)
[2024-06-17 14:57] LABS: VENT MODE, BG AC (ROOM AIR)
[2024-06-17] MEDS ORDERED: ceFAZolin SODIUM 1 GM VIAL ONE (15:03)
[2024-06-17 15:11] LABS: ABG BASE EXCESS 0.1 mmol/L (-2.0-3.0); ABG HCO3 25.4 mmol/L (21.0-28.0); ABG OXYGEN SATURATION 84.9 % (95.0-99.0); ABG PCO2 44 mmHg (35-48); CARBON MONOXIDE 0.3; DEVICE COMMENT 1; PO2, ARTERIAL BG 53.1 mmHg (83.0-108.0)
[2024-06-17] MEDS: ceFAZolin SODIUM 1 GM VIAL IRRIG ONE (15:23)
[2024-06-17] MEDS ORDERED: MIDAZOLAM HCL 1 MG/ML 2ML VIAL ONE (15:24)
[2024-06-17] MEDS: rocuRONium bROMide 10MG/1ML 5ML VL IV ONE (15:36)
[2024-06-17] MEDS: rocuRONium bROMide 10MG/1ML 5ML VL ONE (15:36)
[2024-06-17] MEDS ORDERED: ePHEDrine SULFate 50 MG/ML AMPULE ONE (15:48)
[2024-06-17 16:01] LABS: ABG BASE EXCESS -3.5 mmol/L (-2.0-3.0); ABG HCO3 21.1 mmol/L (21.0-28.0); ABG OXYGEN SATURATION 98.3 % (95.0-99.0); ABG PCO2 36 mmHg (35-48); ABG PH 7.389 (7.35-7.450); CARBON MONOXIDE 0.3; DEVICE COMMENT 2; HHb 1.7; PO2, ARTERIAL BG 129.4 mmHg (83.0-108.0)
[2024-06-17] MEDS ORDERED: SODIUM BICARB 50MEQ 50ML VIAL 50 ML ONE (16:03)
[2024-06-17 16:43] LABS: ABG BASE EXCESS -2.1 mmol/L (-2.0-3.0); ABG HCO3 21.9 mmol/L (21.0-28.0); ABG OXYGEN SATURATION 90.3 % (95.0-99.0); ABG PCO2 35 mmHg (35-48); ABG PH 7.421 (7.35-7.450); CARBON MONOXIDE 0.7; HHb 9.6; PO2, ARTERIAL BG 64.1 mmHg (83.0-108.0); VENT MODE, BG SIMV (ROOM AIR)
[2024-06-17 16:55] LABS: HEMATOCRIT 26.4 % (42-54); MEAN CORPUSCULAR HEMOGLOBIN 30.8 pg (27.0-33.0); MEAN CORPUSCULAR HGB CONC 32.6 g/dL (32.0-36.0); MEAN CORPUSCULAR VOLUME 94.6 fL (79-99); NUCLEATED RED BLOOD CELLS 0.1 % (0.0-0.19); PLATELET COUNT (AUTO) 158 K/uL (130-400); RED BLOOD CELL COUNT(AUTO) 2.79 MIL/uL (4.50-6.20); RED CELL DISTRIBUTION WIDTH 16.9 % (11.0-15.5)
[2024-06-17 17:00] LABS: BASOPHILS # (AUTO) 0.11 K/uL (0.00-0.20); BASOPHILS % (AUTO) 0.5 % (0.0-5.0); EOSINOPHILS # (AUTO) 0.13 K/uL (0.00-0.70); EOSINOPHILS % (AUTO) 0.6 % (0.0-8.0); IMMATURE GRANULOCYTE ABSOLUTE 1.31 K/uL (0-1); LYMPHOCYTES # (AUTO) 1.4 K/uL (1.0-4.8); LYMPHOCYTES % (AUTO) 6.4 % (21.0-51.0); NEUTROPHILS # (AUTO) 17.6 K/uL (1.8-7.7); NEUTROPHILS % (AUTO) 77.7 % (40.0-77.0)
[2024-06-17 17:07] LABS: CREATININE 1.3 mg/dL (0.5-1.3); POTASSIUM 3.9 mmol/L (3.5-5.1)
[2024-06-17 17:09] LABS: INR 2.39 (0.85-1.15); PROTHROMBIN TIME 24.2 SEC (9.6-11.6)
[2024-06-17 17:12] LABS: ALBUMIN 1.6 g/dL (3.5-5.0); BILIRUBIN,TOTAL 1.1 mg/dL (0.2-1.0)
[2024-06-17 17:25] LABS: PARTIAL THROMBOPLASTIN TIME 65.5 SEC (26.3-35.5)
[2024-06-17 17:39] LABS: ABG BASE EXCESS 1.1 mmol/L (-2.0-3.0); ABG HCO3 25.4 mmol/L (21.0-28.0); ABG PCO2 39 mmHg (35-48); ABG PH 7.429 (7.35-7.450); CARBON MONOXIDE 0.5; PO2, ARTERIAL BG 104.6 mmHg (83.0-108.0); VENT MODE, BG SIMV (ROOM AIR)
[2024-06-17 20:03] LABS: ABG BASE EXCESS 1.8 mmol/L (-2.0-3.0); ABG HCO3 25.8 mmol/L (21.0-28.0); ABG OXYGEN SATURATION 98.2 % (95.0-99.0); ABG PCO2 38 mmHg (35-48); ABG PH 7.448 (7.35-7.450); CARBON MONOXIDE 0.3; DEVICE COMMENT ALINE; HHb 1.8; PO2, ARTERIAL BG 140.8 mmHg (83.0-108.0); VENT MODE, BG SIMV PS10 (ROOM AIR)
[2024-06-18] VITALS (114 sets, daily range): BP systolic 79–150; BP diastolic 44–84; PULSE 78–126; RESP 10–30; TEMP 98–101.9; O2SAT 98–100
[2024-06-18 00:10] LABS: ABG BASE EXCESS 1.9 mmol/L (-2.0-3.0); ABG OXYGEN SATURATION 97.1 % (95.0-99.0); ABG PCO2 34 mmHg (35-48); ABG PH 7.491 (7.35-7.450); CARBON MONOXIDE 0.4; DEVICE COMMENT ALINE; HHb 2.9; PO2, ARTERIAL BG 99.2 mmHg (83.0-108.0); VENT MODE, BG SIMVPS10 (ROOM AIR)
[2024-06-18 03:47] LABS: ABG BASE EXCESS 1.9 mmol/L (-2.0-3.0); ABG HCO3 24.2 mmol/L (21.0-28.0); ABG OXYGEN SATURATION 98.1 % (95.0-99.0); ABG PCO2 30 mmHg (35-48); ABG PH 7.527 (7.35-7.450); CARBON MONOXIDE 0; DEVICE COMMENT A LINE; HHb 1.9; PO2, ARTERIAL BG 132.1 mmHg (83.0-108.0); VENT MODE, BG SIMV PS10 (ROOM AIR)
[2024-06-18 04:01] LABS: MEAN CORPUSCULAR HEMOGLOBIN 31.1 pg (27.0-33.0); MEAN CORPUSCULAR HGB CONC 33.2 g/dL (32.0-36.0); MEAN CORPUSCULAR VOLUME 93.6 fL (79-99); NUCLEATED RED BLOOD CELLS 0.1 % (0.0-0.19); RED BLOOD CELL COUNT(AUTO) 2.99 MIL/uL (4.50-6.20); RED CELL DISTRIBUTION WIDTH 16.4 % (11.0-15.5); WHITE BLOOD COUNT (AUTO) 24.1 K/uL (4.8-10.8)
[2024-06-18 04:12] LABS: CREATININE 1.2 mg/dL (0.5-1.3); MAGNESIUM 1.6 mg/dL (1.80-2.40); POTASSIUM 3.6 mmol/L (3.5-5.1)
[2024-06-18 04:16] LABS: INR 1.92 (0.85-1.15); PROTHROMBIN TIME 19.8 SEC (9.6-11.6)
[2024-06-18 04:32] LABS: PARTIAL THROMBOPLASTIN TIME 58.2 SEC (26.3-35.5)
[2024-06-18 08:05] LABS: ABG BASE EXCESS 1.3 mmol/L (-2.0-3.0); ABG OXYGEN SATURATION 97.3 % (95.0-99.0); ABG PCO2 31 mmHg (35-48); ABG PH 7.508 (7.35-7.450); CARBON MONOXIDE 0.3; HHb 2.7; PO2, ARTERIAL BG 104.6 mmHg (83.0-108.0); VENT MODE, BG SIMV, PS10 (ROOM AIR)
[2024-06-18 11:49] LABS: ABG BASE EXCESS 1.4 mmol/L (-2.0-3.0); ABG HCO3 24.1 mmol/L (21.0-28.0); ABG PCO2 31 mmHg (35-48); ABG PH 7.508 (7.35-7.450); CARBON MONOXIDE 0.3; PO2, ARTERIAL BG 92.6 mmHg (83.0-108.0); VENT MODE, BG SIMV, PS10 (ROOM AIR)
[2024-06-18 13:12] LABS: ABG BASE EXCESS 0.5 mmol/L (-2.0-3.0); ABG OXYGEN SATURATION 96.3 % (95.0-99.0); ABG PCO2 30 mmHg (35-48); ABG PH 7.506 (7.35-7.450); CARBON MONOXIDE 0; HHb 3.7; PO2, ARTERIAL BG 87.5 mmHg (83.0-108.0); VENT MODE, BG SIMV, PS10 (ROOM AIR)
[2024-06-18 14:39] LABS: ABG BASE EXCESS -0.6 mmol/L (-2.0-3.0); ABG HCO3 22.9 mmol/L (21.0-28.0); ABG PCO2 33 mmHg (35-48); ABG PH 7.455 (7.35-7.450); CARBON MONOXIDE 0.2; HHb 6.9; VENT MODE, BG SIMV, PS10 (ROOM AIR)
[2024-06-18] MEDS: AMIOdarone 150MG VIAL 150 MG in DEXTROSE 5%-WATER 100 ML IV SCH (15:43)
[2024-06-18 16:13] LABS: ABG BASE EXCESS -1.3 mmol/L (-2.0-3.0); ABG OXYGEN SATURATION 96.6 % (95.0-99.0); ABG PCO2 31 mmHg (35-48); ABG PH 7.463 (7.35-7.450); CARBON MONOXIDE 0.7; HHb 3.4; PO2, ARTERIAL BG 88.9 mmHg (83.0-108.0); VENT MODE, BG SIMV, PS10 (ROOM AIR)
[2024-06-18] MEDS: MEROPENEM 1 GM in 0.9%NACL 100ML IVPB SCH (18:11)
[2024-06-18 18:16] LABS: ABG HCO3 25.2 mmol/L (21.0-28.0); ABG OXYGEN SATURATION 96.9 % (95.0-99.0); ABG PCO2 34 mmHg (35-48); ABG PH 7.487 (7.35-7.450); CARBON MONOXIDE 0.3; DEVICE COMMENT LINE RN KARLA; HHb 3.1; PO2, ARTERIAL BG 101.9 mmHg (83.0-108.0)
[2024-06-18] MEDS: BUDESONIDE 0.5 MG/2 ML INH IH SCH (18:17)
[2024-06-18] MEDS: IpraTROPium 0.5 MG/2.5 ML INH IH SCH (18:17)
[2024-06-18] MEDS: Solu-medROL 40MG VIAL IVP SCH (20:26)
[2024-06-18 20:45] LABS: ABG BASE EXCESS 2.9 mmol/L (-2.0-3.0); ABG OXYGEN SATURATION 98.4 % (95.0-99.0); ABG PCO2 39 mmHg (35-48); ABG PH 7.454 (7.35-7.450); CARBON MONOXIDE 0.4; DEVICE COMMENT LINE RN CLAUDE; HHb 1.6; PO2, ARTERIAL BG 151.4 mmHg (83.0-108.0); VENT MODE, BG SIMV PS10 (ROOM AIR)
[2024-06-19] VITALS (109 sets, daily range): BP systolic 89–158; BP diastolic 38–73; PULSE 73–121; RESP 9–27; TEMP 97.5–100.6; O2SAT 98–100
[2024-06-19 00:10] LABS: ABG BASE EXCESS -1.6 mmol/L (-2.0-3.0); ABG HCO3 21.8 mmol/L (21.0-28.0); ABG PCO2 32 mmHg (35-48); ABG PH 7.457 (7.35-7.450); CARBON MONOXIDE 0.8; DEVICE COMMENT LINE RN CLAUDE; PO2, ARTERIAL BG 98.1 mmHg (83.0-108.0); VENT MODE, BG SIMV PS10 (ROOM AIR)
[2024-06-19 03:23] LABS: BASOPHILS # (AUTO) 0.06 K/uL (0.00-0.20); BASOPHILS % (AUTO) 0.2 % (0.0-5.0); HEMATOCRIT 24.8 % (42-54); IMMATURE GRANULOCYTE ABSOLUTE 0.59 K/uL (0-1); LYMPHOCYTES # (AUTO) 0.5 K/uL (1.0-4.8); LYMPHOCYTES % (AUTO) 2.2 % (21.0-51.0); MEAN CORPUSCULAR HEMOGLOBIN 30.9 pg (27.0-33.0); MEAN CORPUSCULAR HGB CONC 33.1 g/dL (32.0-36.0); MEAN CORPUSCULAR VOLUME 93.6 fL (79-99); MONOCYTES % (AUTO) 4.1 % (3.0-13.0); NEUTROPHILS # (AUTO) 21.9 K/uL (1.8-7.7); PLATELET COUNT (AUTO) 159 K/uL (130-400); RED BLOOD CELL COUNT(AUTO) 2.65 MIL/uL (4.50-6.20); RED CELL DISTRIBUTION WIDTH 16.8 % (11.0-15.5)
[2024-06-19 03:41] LABS: ALBUMIN 1.6 g/dL (3.5-5.0); BILIRUBIN,TOTAL 1.1 mg/dL (0.2-1.0); CREATININE 1.2 mg/dL (0.5-1.3); MAGNESIUM 1.9 mg/dL (1.80-2.40); POTASSIUM 3.8 mmol/L (3.5-5.1); TOTAL PROTEIN, SERUM 5.1 g/dL (6.0-8.3)
[2024-06-19 08:21] LABS: ABG HCO3 25.9 mmol/L (21.0-28.0); ABG OXYGEN SATURATION 98.4 % (95.0-99.0); ABG PCO2 38 mmHg (35-48); ABG PH 7.456 (7.35-7.450); CARBON MONOXIDE 0.9; HHb 1.6; VENT MODE, BG SIMV (ROOM AIR)
[2024-06-19] MEDS: VASOPRESSIN IV SCH (09:47)
[2024-06-19] MEDS: [UNRECOGNIZED DRUG - OTHER] IV SCH (09:47)
[2024-06-19] MEDS: NOREPINEPHRINE BITARTRATE IV SCH (09:48)
[2024-06-19] MEDS: NACL 0.9% IV SCH (09:48)
[2024-06-19 12:39] LABS: ABG BASE EXCESS 2.3 mmol/L (-2.0-3.0); ABG HCO3 25.6 mmol/L (21.0-28.0); ABG OXYGEN SATURATION 97.6 % (95.0-99.0); ABG PCO2 35 mmHg (35-48); ABG PH 7.488 (7.35-7.450); CPAP, BG 5 cm H2O; PO2, ARTERIAL BG 114.4 mmHg (83.0-108.0); VENT MODE, BG CPAP PS 10 (ROOM AIR)
[2024-06-19 12:40] LABS: CARBON MONOXIDE 0.3; HHb 2.4
[2024-06-19 16:54] LABS: ABG BASE EXCESS 0.2 mmol/L (-2.0-3.0); ABG PCO2 35 mmHg (35-48); ABG PH 7.451 (7.35-7.450); CARBON MONOXIDE 0.2; PO2, ARTERIAL BG 130.8 mmHg (83.0-108.0); VENT MODE, BG SIMV PS 10 (ROOM AIR)
[2024-06-19 20:19] LABS: ABG BASE EXCESS 1.1 mmol/L (-2.0-3.0); ABG HCO3 24.4 mmol/L (21.0-28.0); ABG OXYGEN SATURATION 97.6 % (95.0-99.0); ABG PCO2 34 mmHg (35-48); CARBON MONOXIDE 0.4; HHb 2.4; PO2, ARTERIAL BG 111.3 mmHg (83.0-108.0); VENT MODE, BG SIMV,PS10 (ROOM AIR)
[2024-06-19 21:24] LABS: ABG BASE EXCESS 0.1 mmol/L (-2.0-3.0); ABG OXYGEN SATURATION 97.8 % (95.0-99.0); ABG PCO2 31 mmHg (35-48); ABG PH 7.495 (7.35-7.450); CARBON MONOXIDE 0.4; HHb 2.2; PO2, ARTERIAL BG 117.3 mmHg (83.0-108.0); VENT MODE, BG SIMV,PS10 (ROOM AIR)
[2024-06-19 22:55] LABS: ABG BASE EXCESS 1.3 mmol/L (-2.0-3.0); ABG HCO3 24.6 mmol/L (21.0-28.0); ABG OXYGEN SATURATION 96.8 % (95.0-99.0); ABG PCO2 34 mmHg (35-48); ABG PH 7.482 (7.35-7.450); CARBON MONOXIDE 0.4; HHb 3.2; PO2, ARTERIAL BG 96.2 mmHg (83.0-108.0); VENT MODE, BG SIMV,PS10 (ROOM AIR)
[2024-06-20] VITALS (106 sets, daily range): BP systolic 90–139; BP diastolic 42–81; PULSE 74–126; RESP 7–33; TEMP 98.2–98.9; O2SAT 97–100
[2024-06-20 03:13] LABS: BASOPHILS # (AUTO) 0.03 K/uL (0.00-0.20); BASOPHILS % (AUTO) 0.1 % (0.0-5.0); EOSINOPHILS # (AUTO) 0.01 K/uL (0.00-0.70); IMMATURE GRANULOCYTE ABSOLUTE 0.48 K/uL (0-1); LYMPHOCYTES # (AUTO) 0.4 K/uL (1.0-4.8); LYMPHOCYTES % (AUTO) 1.6 % (21.0-51.0); MEAN CORPUSCULAR HEMOGLOBIN 30.3 pg (27.0-33.0); MEAN CORPUSCULAR HGB CONC 32.2 g/dL (32.0-36.0); MEAN CORPUSCULAR VOLUME 94.3 fL (79-99); MONOCYTES # (AUTO) 1.2 K/uL (0.1-1.0); MONOCYTES % (AUTO) 4.8 % (3.0-13.0); NEUTROPHILS % (AUTO) 91.5 % (40.0-77.0); NUCLEATED RED BLOOD CELLS 0.1 % (0.0-0.19); PLATELET COUNT (AUTO) 193 K/uL (130-400); RED BLOOD CELL COUNT(AUTO) 2.44 MIL/uL (4.50-6.20); RED CELL DISTRIBUTION WIDTH 16.7 % (11.0-15.5)
[2024-06-20 03:34] LABS: ABG BASE EXCESS 2.1 mmol/L (-2.0-3.0); ABG HCO3 25.2 mmol/L (21.0-28.0); ABG OXYGEN SATURATION 97.1 % (95.0-99.0); ABG PCO2 33 mmHg (35-48); CARBON MONOXIDE 0.7; HHb 2.9; PO2, ARTERIAL BG 99.3 mmHg (83.0-108.0); VENT MODE, BG SIMV,PS10 (ROOM AIR)
[2024-06-20 03:39] LABS: ALBUMIN 1.5 g/dL (3.5-5.0); CREATININE 1.2 mg/dL (0.5-1.3); POTASSIUM 3.4 mmol/L (3.5-5.1); TOTAL PROTEIN, SERUM 4.9 g/dL (6.0-8.3)
[2024-06-20] MEDS: CALCIUM GLUC 1GM/10ML VIAL ONE (04:28)
[2024-06-20] MEDS: dexaMETHasone SOD PHOSPHATE 4 MG/ML 1ML VIAL IV ONE (06:08)
[2024-06-20 08:21] LABS: ABG BASE EXCESS -0.2 mmol/L (-2.0-3.0); ABG HCO3 23.2 mmol/L (21.0-28.0); ABG OXYGEN SATURATION 95.8 % (95.0-99.0); ABG PCO2 32 mmHg (35-48); ABG PH 7.473 (7.35-7.450); CARBON MONOXIDE 0.5; CPAP, BG 10 cm H2O; DEVICE COMMENT RN RAQUEL; HHb 4.2; PO2, ARTERIAL BG 80.3 mmHg (83.0-108.0); VENT MODE, BG CPAP (ROOM AIR)
[2024-06-20] MEDS ORDERED: AMIOdarone 150MG VIAL 150 MG in DEXTROSE 5%-WATER 100 ML IV SCH (09:00)
[2024-06-20 10:43] LABS: ABG BASE EXCESS 0.8 mmol/L (-2.0-3.0); ABG HCO3 24.5 mmol/L (21.0-28.0); ABG OXYGEN SATURATION 95.6 % (95.0-99.0); ABG PCO2 35 mmHg (35-48); ABG PH 7.461 (7.35-7.450); CARBON MONOXIDE 0.5; DEVICE COMMENT RN RAQUEL; HHb 4.4; PO2, ARTERIAL BG 80.3 mmHg (83.0-108.0); VENT MODE, BG CAFM (ROOM AIR)
[2024-06-20 10:51] LABS: INR 2.19 (0.85-1.15); PROTHROMBIN TIME 22.3 SEC (9.6-11.6)
[2024-06-20 16:14] LABS: ABG BASE EXCESS 0.4 mmol/L (-2.0-3.0); ABG HCO3 23.6 mmol/L (21.0-28.0); ABG OXYGEN SATURATION 97.5 % (95.0-99.0); ABG PCO2 32 mmHg (35-48); ABG PH 7.481 (7.35-7.450); CARBON MONOXIDE 0.6; DEVICE COMMENT RN RAQUEL; HHb 2.5; PO2, ARTERIAL BG 111.9 mmHg (83.0-108.0); VENT MODE, BG CAFM (ROOM AIR)
[2024-06-20 16:22] LABS: HEMATOCRIT 23.7 % (42-54)
[2024-06-20 23:56] LABS: CREATININE 1.2 mg/dL (0.5-1.3); POTASSIUM 3.6 mmol/L (3.5-5.1)
[2024-06-21] VITALS (70 sets, daily range): BP systolic 92–142; BP diastolic 38–104; PULSE 74–117; RESP 10–30; TEMP 98.3–98.9; O2SAT 97–99
[2024-06-21 04:22] LABS: BASOPHILS # (AUTO) 0.02 K/uL (0.00-0.20); BASOPHILS % (AUTO) 0.1 % (0.0-5.0); HEMATOCRIT 23.8 % (42-54); IMMATURE GRANULOCYTE ABSOLUTE 0.59 K/uL (0-1); LYMPHOCYTES # (AUTO) 0.3 K/uL (1.0-4.8); LYMPHOCYTES % (AUTO) 1.3 % (21.0-51.0); MEAN CORPUSCULAR HEMOGLOBIN 30.8 pg (27.0-33.0); MEAN CORPUSCULAR HGB CONC 32.4 g/dL (32.0-36.0); MEAN CORPUSCULAR VOLUME 95.2 fL (79-99); MONOCYTES # (AUTO) 1.1 K/uL (0.1-1.0); MONOCYTES % (AUTO) 4.8 % (3.0-13.0); NEUTROPHILS # (AUTO) 21.9 K/uL (1.8-7.7); NEUTROPHILS % (AUTO) 91.3 % (40.0-77.0); NUCLEATED RED BLOOD CELLS 0.2 % (0.0-0.19); PLATELET COUNT (AUTO) 221 K/uL (130-400); RED CELL DISTRIBUTION WIDTH 16.9 % (11.0-15.5); WHITE BLOOD COUNT (AUTO) 23.9 K/uL (4.8-10.8)
[2024-06-21 04:39] LABS: INR 2.01 (0.85-1.15); PROTHROMBIN TIME 20.6 SEC (9.6-11.6)
[2024-06-21 04:55] LABS: ALBUMIN 1.8 g/dL (3.5-5.0); CREATININE 1.2 mg/dL (0.5-1.3); PARTIAL THROMBOPLASTIN TIME 59.8 SEC (26.3-35.5); POTASSIUM 3.4 mmol/L (3.5-5.1); TOTAL PROTEIN, SERUM 4.9 g/dL (6.0-8.3)
[2024-06-21] MEDS: VANCOMYCIN 750MG VIAL IVPB SCH (10:08)
[2024-06-21] MEDS ORDERED: INSULIN humuLIN R 100 UNIT/ML 3ML SQ SCH (11:30)
[2024-06-21] MEDS: INSULIN humuLIN R 100 UNIT/ML 3ML SQ SCH (11:52)
[2024-06-21] MEDS: 0.9%NACL 10ML VIAL IV SCH (20:02)
[2024-06-21] MEDS: INSULIN GLARgine 100 UNITS/ML 10 ML VIAL SQ SCH (20:08)
[2024-06-22] VITALS (102 sets, daily range): BP systolic 117–191; BP diastolic 43–77; PULSE 82–99; RESP 12–33; TEMP 97.9–99.1; O2SAT 96–99
[2024-06-22 03:47] LABS: HEMATOCRIT 22.2 % (42-54); MEAN CORPUSCULAR HGB CONC 32.4 g/dL (32.0-36.0); MEAN CORPUSCULAR VOLUME 95.7 fL (79-99); RED BLOOD CELL COUNT(AUTO) 2.32 MIL/uL (4.50-6.20); RED CELL DISTRIBUTION WIDTH 16.7 % (11.0-15.5); WHITE BLOOD COUNT (AUTO) 18.8 K/uL (4.8-10.8)
[2024-06-22 03:57] LABS: INR 2.16 (0.85-1.15)
[2024-06-22 03:59] LABS: PARTIAL THROMBOPLASTIN TIME 60.9 SEC (26.3-35.5)
[2024-06-22 04:18] LABS: ALBUMIN 1.8 g/dL (3.5-5.0); CREATININE 1.3 mg/dL (0.5-1.3); MAGNESIUM 1.9 mg/dL (1.80-2.40); POTASSIUM 3.2 mmol/L (3.5-5.1); TOTAL PROTEIN, SERUM 5.1 g/dL (6.0-8.3)
[2024-06-22 12:00] LABS: ABG BASE EXCESS 1.8 mmol/L (-2.0-3.0); ABG HCO3 24.4 mmol/L (21.0-28.0); ABG OXYGEN SATURATION 92.6 % (95.0-99.0); ABG PCO2 30 mmHg (35-48); ABG PH 7.528 (7.35-7.450); CARBON MONOXIDE 0.5; DEVICE COMMENT A-LINE; HHb 7.3; PO2, ARTERIAL BG 66.3 mmHg (83.0-108.0); VENT MODE, BG 3LNC (ROOM AIR)
[2024-06-22] MEDS: BALSAM PERU/CASTOR OIL 60 GM TUBE TP SCH (20:11)
[2024-06-22] MEDS: INSULIN GLARgine 100 UNITS/ML 10 ML VIAL SQ SCH (20:12)
[2024-06-22] MEDS ORDERED: COMPOUND IV REFRIGERATED 1 EACH IVSOLN MISC PRN (22:30)
[2024-06-22] MEDS: THIAMINE HCL 100 MG/ML 2ML VIAL IVP SCH (22:57)
[2024-06-22] MEDS: FOLic ACID 5 MG/ML VIAL IV SCH (23:00)
[2024-06-22 23:34] LABS: CREATININE 1.2 mg/dL (0.5-1.3); MAGNESIUM 2.2 mg/dL (1.80-2.40); POTASSIUM 3.4 mmol/L (3.5-5.1)
[2024-06-23] VITALS (80 sets, daily range): BP systolic 82–187; BP diastolic 50–92; PULSE 66–94; RESP 13–29; TEMP 98–99.1; O2SAT 97–100
[2024-06-23 04:41] LABS: BASOPHILS # (AUTO) 0.02 K/uL (0.00-0.20); BASOPHILS % (AUTO) 0.1 % (0.0-5.0); HEMATOCRIT 23.2 % (42-54); IMMATURE GRANULOCYTE ABSOLUTE 0.56 K/uL (0-1); LYMPHOCYTES # (AUTO) 0.3 K/uL (1.0-4.8); LYMPHOCYTES % (AUTO) 1.7 % (21.0-51.0); MEAN CORPUSCULAR HEMOGLOBIN 30.7 pg (27.0-33.0); MEAN CORPUSCULAR HGB CONC 31.9 g/dL (32.0-36.0); MEAN CORPUSCULAR VOLUME 96.3 fL (79-99); MONOCYTES # (AUTO) 1.2 K/uL (0.1-1.0); MONOCYTES % (AUTO) 6.2 % (3.0-13.0); NEUTROPHILS # (AUTO) 17.1 K/uL (1.8-7.7); NEUTROPHILS % (AUTO) 89.1 % (40.0-77.0); PLATELET COUNT (AUTO) 237 K/uL (130-400); RED BLOOD CELL COUNT(AUTO) 2.41 MIL/uL (4.50-6.20); WHITE BLOOD COUNT (AUTO) 19.2 K/uL (4.8-10.8)
[2024-06-23 04:56] LABS: ALBUMIN 1.9 g/dL (3.5-5.0); CREATININE 1.1 mg/dL (0.5-1.3); INR 1.68 (0.85-1.15); POTASSIUM 3.7 mmol/L (3.5-5.1); PROTHROMBIN TIME 17.5 SEC (9.6-11.6); TOTAL PROTEIN, SERUM 5.2 g/dL (6.0-8.3)
[2024-06-23 04:58] LABS: PARTIAL THROMBOPLASTIN TIME 48.5 SEC (26.3-35.5)
[2024-06-23] MEDS: INSULIN GLARgine 100 UNITS/ML 10 ML VIAL SQ SCH (06:36)
[2024-06-23 11:35] LABS: MAGNESIUM 1.3 mg/dL (1.80-2.40)
[2024-06-23 12:08] LABS: POTASSIUM 2.7 mmol/L (3.5-5.1)
[2024-06-23 12:50] LABS: MAGNESIUM 2.1 mg/dL (1.80-2.40); POTASSIUM 3.7 mmol/L (3.5-5.1)
[2024-06-23] MEDS ORDERED: ketaMINE 50MG/ML SYRINGE 50 MG/ML DISP.SYRIN ONE (13:23)
[2024-06-23] MEDS ORDERED: FENTanyl CITRate PF 50 MCG/1 ML 2ML VIAL ONE (13:25)
[2024-06-23] MEDS ORDERED: LIDOCAINE PF 100MG/5ML (2%) SYRINGE 5ML ONE (13:25)
[2024-06-23] MEDS ORDERED: MIDAZOLAM HCL 1 MG/ML 2ML VIAL ONE (13:29)
[2024-06-23] MEDS ORDERED: rocuRONium bROMide 10MG/1ML 5ML VL ONE (13:29)
[2024-06-23] MEDS ORDERED: ceFAZolin SODIUM 1 GM VIAL ONE (13:42)
[2024-06-23] MEDS ORDERED: HEParin-NS 1,000 UNIT/500 ML 500 ML IV ONE (13:53)
[2024-06-23] MEDS: ceFAZolin SODIUM 1 GM VIAL IRRIG ONE (14:00)
[2024-06-23] MEDS ORDERED: FENTanyl CITRate PF 50 MCG/1 ML 5ML AMP IV ONE (14:12)
[2024-06-23] MEDS ORDERED: NEOSTIGMINE METHYLSULFATE 1MG/ML IV ONE (14:18)
[2024-06-23] MEDS ORDERED: GLYCOPYRROLATE 0.2 MG/ML 5 ML VIAL ONE (14:18)
[2024-06-23 14:46] LABS: ABG HCO3 26.8 mmol/L (21.0-28.0); ABG PCO2 43 mmHg (35-48); ABG PH 7.417 (7.35-7.450); CARBON MONOXIDE 0.6; PO2, ARTERIAL BG 104.7 mmHg (83.0-108.0); VENT MODE, BG SIMV (ROOM AIR)
[2024-06-23 16:34] LABS: ABG BASE EXCESS 2.5 mmol/L (-2.0-3.0); ABG OXYGEN SATURATION 98.2 % (95.0-99.0); ABG PCO2 36 mmHg (35-48); ABG PH 7.482 (7.35-7.450); CARBON MONOXIDE 0.7; HHb 1.8; PO2, ARTERIAL BG 126.6 mmHg (83.0-108.0); VENT MODE, BG SIMV (ROOM AIR)
[2024-06-23 18:37] LABS: ABG BASE EXCESS 4.4 mmol/L (-2.0-3.0); ABG HCO3 27.5 mmol/L (21.0-28.0); ABG OXYGEN SATURATION 97.4 % (95.0-99.0); ABG PCO2 35 mmHg (35-48); ABG PH 7.517 (7.35-7.450); CARBON MONOXIDE 0.5; CPAP, BG 5 cm H2O; DEVICE COMMENT ALINE; HHb 2.6; PO2, ARTERIAL BG 101.8 mmHg (83.0-108.0); VENT MODE, BG PS10 (ROOM AIR)
[2024-06-23 20:09] LABS: ABG BASE EXCESS 3.3 mmol/L (-2.0-3.0); ABG HCO3 26.6 mmol/L (21.0-28.0); ABG OXYGEN SATURATION 97.3 % (95.0-99.0); ABG PCO2 35 mmHg (35-48); ABG PH 7.497 (7.35-7.450); CARBON MONOXIDE 0.2; DEVICE COMMENT ALINE; HHb 2.7; PO2, ARTERIAL BG 100.5 mmHg (83.0-108.0); VENT MODE, BG CA 10L (ROOM AIR)
[2024-06-24] VITALS (84 sets, daily range): BP systolic 70–167; BP diastolic 41–107; PULSE 68–88; RESP 10–26; TEMP 97.6–98.4; O2SAT 94–100
[2024-06-24 07:04] LABS: BASOPHILS # (AUTO) 0.02 K/uL (0.00-0.20); BASOPHILS % (AUTO) 0.1 % (0.0-5.0); EOSINOPHILS # (AUTO) 0.01 K/uL (0.00-0.70); EOSINOPHILS % (AUTO) 0.1 % (0.0-8.0); HEMATOCRIT 25.8 % (42-54); IMMATURE GRANULOCYTE ABSOLUTE 0.62 K/uL (0-1); LYMPHOCYTES # (AUTO) 0.3 K/uL (1.0-4.8); LYMPHOCYTES % (AUTO) 1.8 % (21.0-51.0); MEAN CORPUSCULAR HEMOGLOBIN 30.4 pg (27.0-33.0); MEAN CORPUSCULAR HGB CONC 30.6 g/dL (32.0-36.0); MEAN CORPUSCULAR VOLUME 99.2 fL (79-99); MONOCYTES # (AUTO) 1.2 K/uL (0.1-1.0); MONOCYTES % (AUTO) 6.3 % (3.0-13.0); NEUTROPHILS # (AUTO) 16.5 K/uL (1.8-7.7); NEUTROPHILS % (AUTO) 88.4 % (40.0-77.0); NUCLEATED RED BLOOD CELLS 0.1 % (0.0-0.19); PLATELET COUNT (AUTO) 267 K/uL (130-400); RED CELL DISTRIBUTION WIDTH 17.2 % (11.0-15.5); WHITE BLOOD COUNT (AUTO) 18.6 K/uL (4.8-10.8)
[2024-06-24 07:11] LABS: CREATININE 1.1 mg/dL (0.5-1.3); MAGNESIUM 2.1 mg/dL (1.80-2.40); POTASSIUM 3.9 mmol/L (3.5-5.1)
[2024-06-24] MEDS: furoSEMIDE 40MG VIAL IV SCH (14:30)
[2024-06-25] VITALS (103 sets, daily range): BP systolic 63–170; BP diastolic 41–100; PULSE 65–84; RESP 10–84; TEMP 97.7–98.6; O2SAT 95–99
[2024-06-25 06:12] LABS: HEMATOCRIT 23.9 % (42-54); MEAN CORPUSCULAR HEMOGLOBIN 30.3 pg (27.0-33.0); MEAN CORPUSCULAR HGB CONC 30.5 g/dL (32.0-36.0); MEAN CORPUSCULAR VOLUME 99.2 fL (79-99); NUCLEATED RED BLOOD CELLS 0.1 % (0.0-0.19); RED BLOOD CELL COUNT(AUTO) 2.41 MIL/uL (4.50-6.20); WHITE BLOOD COUNT (AUTO) 18.1 K/uL (4.8-10.8)
[2024-06-25 06:24] LABS: CREATININE 0.9 mg/dL (0.5-1.3); POTASSIUM 3.7 mmol/L (3.5-5.1)
[2024-06-25] MEDS: Solu-medROL 40MG VIAL IVP SCH (09:36)
[2024-06-25] MEDS: AMIOdarone 200 MG TABLET PO SCH (13:11)
[2024-06-26] VITALS (63 sets, daily range): BP systolic 51–147; BP diastolic 34–111; PULSE 72–87; RESP 13–55; TEMP 97.8–98.2; O2SAT 95–98
[2024-06-26 04:04] LABS: BASOPHILS # (AUTO) 0.05 K/uL (0.00-0.20); BASOPHILS % (AUTO) 0.3 % (0.0-5.0); HEMATOCRIT 28.8 % (42-54); IMMATURE GRANULOCYTE ABSOLUTE 1.09 K/uL (0-1); LYMPHOCYTES # (AUTO) 0.5 K/uL (1.0-4.8); LYMPHOCYTES % (AUTO) 2.7 % (21.0-51.0); MEAN CORPUSCULAR HEMOGLOBIN 30.9 pg (27.0-33.0); MEAN CORPUSCULAR HGB CONC 30.9 g/dL (32.0-36.0); MONOCYTES # (AUTO) 1.2 K/uL (0.1-1.0); MONOCYTES % (AUTO) 6.1 % (3.0-13.0); NEUTROPHILS # (AUTO) 16.7 K/uL (1.8-7.7); NEUTROPHILS % (AUTO) 85.3 % (40.0-77.0); PLATELET COUNT (AUTO) 273 K/uL (130-400); RED BLOOD CELL COUNT(AUTO) 2.88 MIL/uL (4.50-6.20); RED CELL DISTRIBUTION WIDTH 17.1 % (11.0-15.5); WHITE BLOOD COUNT (AUTO) 19.5 K/uL (4.8-10.8)
[2024-06-26 04:28] LABS: CREATININE 0.9 mg/dL (0.5-1.3); POTASSIUM 3.6 mmol/L (3.5-5.1); TOTAL PROTEIN, SERUM 5.4 g/dL (6.0-8.3)
[2024-06-26 04:33] LABS: B-TYPE NATRIURETIC PEPTIDE 517 pg/mL (0-100)
[2024-06-26 04:58] LABS: WBC MORPHOLOGY CONSISTENT W/DIFF
[2024-06-26] MEDS: FONDAPARINUX SODIUM 7.5 MG/0.6 ML SQ SCH (08:43)
[2024-06-26] MEDS: DiphenhydrAMINE HCL 25 MG CAPSULE PO PRN (22:53)
[2024-06-27] VITALS (18 sets, daily range): BP systolic 87–132; BP diastolic 33–75; PULSE 77–85; RESP 12–41; TEMP 97.4–99; O2SAT 95–98
[2024-06-27 04:55] LABS: HEMATOCRIT 27.6 % (42-54); MEAN CORPUSCULAR HEMOGLOBIN 30.3 pg (27.0-33.0); MEAN CORPUSCULAR HGB CONC 31.5 g/dL (32.0-36.0); MEAN CORPUSCULAR VOLUME 96.2 fL (79-99); RED BLOOD CELL COUNT(AUTO) 2.87 MIL/uL (4.50-6.20); WHITE BLOOD COUNT (AUTO) 19.1 K/uL (4.8-10.8)
[2024-06-27 05:11] LABS: CREATININE 0.8 mg/dL (0.5-1.3); POTASSIUM 3.7 mmol/L (3.5-5.1)
[2024-06-27] MEDS: DabiGATran 150MG CAPSULE PO SCH (08:30)
[2024-06-27] MEDS: metoPROLOL tartRATE 25 MG TAB PO SCH (08:35)
[2024-06-27] MEDS: FAMOTIDINE 20MG TAB PO SCH (20:59)
[2024-06-27] MEDS: furoSEMIDE 40 MG TABLET PO SCH (20:59)
[2024-06-28] VITALS (24 sets, daily range): BP systolic 57–127; BP diastolic 26–106; PULSE 78–84; RESP 12–21; TEMP 98.2–98.6; O2SAT 95–98
[2024-06-28 04:12] LABS: BASOPHILS # (AUTO) 0.13 K/uL (0.00-0.20); BASOPHILS % (AUTO) 0.6 % (0.0-5.0); HEMATOCRIT 30.7 % (42-54); IMMATURE GRANULOCYTE ABSOLUTE 1.63 K/uL (0-1); LYMPHOCYTES # (AUTO) 0.7 K/uL (1.0-4.8); LYMPHOCYTES % (AUTO) 3.1 % (21.0-51.0); MEAN CORPUSCULAR HGB CONC 31.9 g/dL (32.0-36.0); MEAN CORPUSCULAR VOLUME 97.2 fL (79-99); MONOCYTES # (AUTO) 1.5 K/uL (0.1-1.0); MONOCYTES % (AUTO) 6.5 % (3.0-13.0); NEUTROPHILS # (AUTO) 19.5 K/uL (1.8-7.7); NEUTROPHILS % (AUTO) 82.9 % (40.0-77.0); PLATELET COUNT (AUTO) 272 K/uL (130-400); RED BLOOD CELL COUNT(AUTO) 3.16 MIL/uL (4.50-6.20); RED CELL DISTRIBUTION WIDTH 17.2 % (11.0-15.5); WHITE BLOOD COUNT (AUTO) 23.5 K/uL (4.8-10.8)
[2024-06-28 04:28] LABS: MAGNESIUM 1.9 mg/dL (1.80-2.40); POTASSIUM 3.6 mmol/L (3.5-5.1)
[2024-06-28] MEDS: IpraTROPium 0.5 MG/2.5 ML INH IH SCH (14:41)
[2024-06-28] MEDS: furoSEMIDE 20 MG TABLET PO SCH (17:14)
[2024-06-29] VITALS (14 sets, daily range): BP systolic 103–116; BP diastolic 49–76; PULSE 68–86; RESP 12–20; TEMP 97.9–98.6; O2SAT 97–100
[2024-06-29 03:51] LABS: BASOPHILS # (AUTO) 0.15 K/uL (0.00-0.20); BASOPHILS % (AUTO) 0.6 % (0.0-5.0); EOSINOPHILS # (AUTO) 0.13 K/uL (0.00-0.70); EOSINOPHILS % (AUTO) 0.5 % (0.0-8.0); HEMATOCRIT 32.2 % (42-54); IMMATURE GRANULOCYTE ABSOLUTE 2.32 K/uL (0-1); LYMPHOCYTES # (AUTO) 1.3 K/uL (1.0-4.8); MEAN CORPUSCULAR HEMOGLOBIN 31.5 pg (27.0-33.0); MEAN CORPUSCULAR HGB CONC 31.7 g/dL (32.0-36.0); MEAN CORPUSCULAR VOLUME 99.4 fL (79-99); MONOCYTES # (AUTO) 1.9 K/uL (0.1-1.0); MONOCYTES % (AUTO) 7.4 % (3.0-13.0); NEUTROPHILS # (AUTO) 20.3 K/uL (1.8-7.7); NEUTROPHILS % (AUTO) 77.6 % (40.0-77.0); PLATELET COUNT (AUTO) 275 K/uL (130-400); RED BLOOD CELL COUNT(AUTO) 3.24 MIL/uL (4.50-6.20); RED CELL DISTRIBUTION WIDTH 17.4 % (11.0-15.5); WHITE BLOOD COUNT (AUTO) 26.1 K/uL (4.8-10.8)
[2024-06-29 04:03] LABS: CREATININE 0.9 mg/dL (0.5-1.3); MAGNESIUM 2.2 mg/dL (1.80-2.40); POTASSIUM 3.5 mmol/L (3.5-5.1)
[2024-06-29] MEDS: Solu-medROL 40MG VIAL IVP SCH (08:26)
[2024-06-29] MEDS: miDODRine HCL 5 MG TABLET PO SCH (13:24)
[2024-06-29 16:25] LABS: INR 1.22 (0.85-1.15)
[2024-06-29 16:27] LABS: PARTIAL THROMBOPLASTIN TIME 35.6 SEC (26.3-35.5)
[2024-06-29 18:54] LABS: APPEARANCE,URINE CLEAR (CLEAR); BILIRUBIN,URINE NEGATIVE (NEGATIVE); COLOR,URINE YELLOW (YELLOW); GLUCOSE, URINE (UA) 50 mg/dL (NEGATIVE); KETONES,URINE NEGATIVE (NEGATIVE); LEUKOCYTE ESTERASE ,URINE NEGATIVE Leu/uL (NEGATIVE); NITRATE,URINE NEGATIVE (NEGATIVE); OCCULT BLOOD,URINE SMALL (NEGATIVE); PH,URINE 7.5 (5.0-8.0); PROTEIN,URINE 30 mg/dL (NEGATIVE)
[2024-06-29 18:57] LABS: ADD UA MICROSCOPIC YES
[2024-06-29 18:59] LABS: MUCUS,URINE RARE LPF (None Seen); SQUAMOUS EPITHELIAL CELL,UR RARE /HPF (0-2); WBC,URINE 0-1 /HPF (0-1)
[2024-06-29] MEDS: INSULIN humuLIN R 100 UNIT/ML 3ML SQ SCH (20:38)
[2024-06-30] VITALS (11 sets, daily range): BP systolic 97–145; BP diastolic 45–69; PULSE 69–83; RESP 14–20; TEMP 98–98.3; O2SAT 97–99
[2024-06-30 03:48] LABS: BASOPHILS # (AUTO) 0.08 K/uL (0.00-0.20); BASOPHILS % (AUTO) 0.4 % (0.0-5.0); EOSINOPHILS # (AUTO) 0.14 K/uL (0.00-0.70); EOSINOPHILS % (AUTO) 0.7 % (0.0-8.0); HEMATOCRIT 27.4 % (42-54); IMMATURE GRANULOCYTE ABSOLUTE 1.34 K/uL (0-1); LYMPHOCYTES # (AUTO) 1.1 K/uL (1.0-4.8); LYMPHOCYTES % (AUTO) 5.2 % (21.0-51.0); MEAN CORPUSCULAR HEMOGLOBIN 30.8 pg (27.0-33.0); MEAN CORPUSCULAR HGB CONC 31.4 g/dL (32.0-36.0); MEAN CORPUSCULAR VOLUME 98.2 fL (79-99); MONOCYTES # (AUTO) 1.6 K/uL (0.1-1.0); MONOCYTES % (AUTO) 7.3 % (3.0-13.0); NEUTROPHILS # (AUTO) 17.2 K/uL (1.8-7.7); NEUTROPHILS % (AUTO) 80.1 % (40.0-77.0); PLATELET COUNT (AUTO) 232 K/uL (130-400); RED BLOOD CELL COUNT(AUTO) 2.79 MIL/uL (4.50-6.20); RED CELL DISTRIBUTION WIDTH 17.2 % (11.0-15.5); WHITE BLOOD COUNT (AUTO) 21.4 K/uL (4.8-10.8)
[2024-06-30 04:13] LABS: ALBUMIN 1.6 g/dL (3.5-5.0); BILIRUBIN,TOTAL 0.9 mg/dL (0.2-1.0); CREATININE 0.7 mg/dL (0.5-1.3); MAGNESIUM 2.1 mg/dL (1.80-2.40); POTASSIUM 3.9 mmol/L (3.5-5.1); TOTAL PROTEIN, SERUM 4.7 g/dL (6.0-8.3)
[2024-06-30] MEDS ORDERED: NEOMY SULF/BACITRAC ZN/POLY OINT 30GM TUBE TP SCH (09:00)
[2024-06-30] MEDS: metoPROLOL tartRATE 25 MG TAB PO SCH (09:15)
[2024-06-30 13:06] LABS: RAPID GROUP A STREP negative (NEGATIVE)
[2024-06-30 13:10] LABS: SARS-CoV-2, RNA, NAAT NEGATIVE SARS CoV-2 (NEGATIVE)
[2024-06-30 13:16] LABS: INFLUENZA TYPE A Negative For Type A (NEGATIVE); INFLUENZA TYPE B Negative For Type B (NEGATIVE)
[2024-06-30] MEDS: doCUSate SODIUM 100 MG CAP PO SCH (14:48)
[2024-06-30] MEDS: polyETHYLene GLYCol 3350 17 GM POWD.PACK PO SCH (14:48)
[2024-06-30] MEDS: NEOMY SULF/BACITRAC ZN/POLY OINT 30GM TUBE TP SCH (22:32)
[2024-07-01] VITALS (14 sets, daily range): BP systolic 91–151; BP diastolic 53–75; PULSE 74–95; RESP 17–22; TEMP 97.5–98.8; O2SAT 97–100
[2024-07-01] MEDS: BENZOCAINE/MENTH/CETYLPYRD CL 1 EACH LOZENGE MM PRN (02:46)
[2024-07-01 03:46] LABS: BASOPHILS # (AUTO) 0.06 K/uL (0.00-0.20); BASOPHILS % (AUTO) 0.3 % (0.0-5.0); EOSINOPHILS # (AUTO) 0.19 K/uL (0.00-0.70); HEMATOCRIT 27.3 % (42-54); IMMATURE GRANULOCYTE ABSOLUTE 1.07 K/uL (0-1); LYMPHOCYTES # (AUTO) 1.2 K/uL (1.0-4.8); LYMPHOCYTES % (AUTO) 6.4 % (21.0-51.0); MEAN CORPUSCULAR HEMOGLOBIN 30.9 pg (27.0-33.0); MEAN CORPUSCULAR HGB CONC 31.9 g/dL (32.0-36.0); MEAN CORPUSCULAR VOLUME 96.8 fL (79-99); MONOCYTES # (AUTO) 1.3 K/uL (0.1-1.0); NEUTROPHILS # (AUTO) 14.8 K/uL (1.8-7.7); NEUTROPHILS % (AUTO) 79.6 % (40.0-77.0); PLATELET COUNT (AUTO) 231 K/uL (130-400); RED BLOOD CELL COUNT(AUTO) 2.82 MIL/uL (4.50-6.20); RED CELL DISTRIBUTION WIDTH 17.2 % (11.0-15.5); WHITE BLOOD COUNT (AUTO) 18.6 K/uL (4.8-10.8)
[2024-07-01 03:58] LABS: CREATININE 0.8 mg/dL (0.5-1.3); MAGNESIUM 1.9 mg/dL (1.80-2.40); POTASSIUM 3.9 mmol/L (3.5-5.1)
[2024-07-01] MEDS: MULTIVITAMIN TABLET PO SCH (10:07)
[2024-07-01] MEDS: furoSEMIDE 20 MG TABLET PO SCH (12:08)
[2024-07-01] MEDS ORDERED: VANCOMYCIN PROTOCOL PER PHARMACY IV SCH (13:30)
[2024-07-01 15:27] LABS: INR 1.17 (0.85-1.15); PROTHROMBIN TIME 12.5 SEC (9.6-11.6)
[2024-07-01 15:28] LABS: PARTIAL THROMBOPLASTIN TIME 37.4 SEC (26.3-35.5)
[2024-07-01] MEDS: MEROPENEM 1 GM in 0.9%NACL 100ML 100 ML IVPB SCH (16:26)
[2024-07-01] MEDS: guaiFENesin-DM 200/20MG 10ML PO PRN (16:28)
[2024-07-01] MEDS: NYSTatin 15 GM POWDER TP SCH (16:29)
[2024-07-01] MEDS: VANCOMYCIN 750MG VIAL IVPB SCH (16:32)
[2024-07-01] MEDS ORDERED: IOHEXOL 350 MG/ML 100ML INFUS..BTL IV ONE (16:34)
[2024-07-01] MEDS: 0.9%NACL 10ML VIAL IV SCH (21:00)
[2024-07-02] VITALS (12 sets, daily range): BP systolic 88–152; BP diastolic 43–74; PULSE 77–99; RESP 16–22; TEMP 97.4–98.6; O2SAT 24–99
[2024-07-02 04:26] LABS: BASOPHILS # (AUTO) 0.04 K/uL (0.00-0.20); BASOPHILS % (AUTO) 0.2 % (0.0-5.0); EOSINOPHILS # (AUTO) 0.25 K/uL (0.00-0.70); EOSINOPHILS % (AUTO) 1.4 % (0.0-8.0); HEMATOCRIT 28.2 % (42-54); IMMATURE GRANULOCYTE ABSOLUTE 0.71 K/uL (0-1); LYMPHOCYTES # (AUTO) 1.1 K/uL (1.0-4.8); LYMPHOCYTES % (AUTO) 6.4 % (21.0-51.0); MEAN CORPUSCULAR HEMOGLOBIN 31.3 pg (27.0-33.0); MEAN CORPUSCULAR HGB CONC 31.9 g/dL (32.0-36.0); MEAN CORPUSCULAR VOLUME 97.9 fL (79-99); MONOCYTES # (AUTO) 1.2 K/uL (0.1-1.0); MONOCYTES % (AUTO) 6.8 % (3.0-13.0); NEUTROPHILS # (AUTO) 14.2 K/uL (1.8-7.7); NEUTROPHILS % (AUTO) 81.2 % (40.0-77.0); PLATELET COUNT (AUTO) 204 K/uL (130-400); RED BLOOD CELL COUNT(AUTO) 2.88 MIL/uL (4.50-6.20); RED CELL DISTRIBUTION WIDTH 16.8 % (11.0-15.5); WHITE BLOOD COUNT (AUTO) 17.5 K/uL (4.8-10.8)
[2024-07-02] MEDS: miDODRine HCL 5 MG TABLET PO SCH (21:11)
[2024-07-03] VITALS (14 sets, daily range): BP systolic 84–140; BP diastolic 48–78; PULSE 72–90; RESP 18–20; TEMP 98.3–99.3; O2SAT 95–100
[2024-07-03 03:52] LABS: BASOPHILS # (AUTO) 0.03 K/uL (0.00-0.20); BASOPHILS % (AUTO) 0.2 % (0.0-5.0); EOSINOPHILS # (AUTO) 0.41 K/uL (0.00-0.70); EOSINOPHILS % (AUTO) 3.2 % (0.0-8.0); HEMATOCRIT 25.1 % (42-54); IMMATURE GRANULOCYTE ABSOLUTE 0.49 K/uL (0-1); LYMPHOCYTES % (AUTO) 7.8 % (21.0-51.0); MEAN CORPUSCULAR HGB CONC 31.9 g/dL (32.0-36.0); MEAN CORPUSCULAR VOLUME 97.3 fL (79-99); MONOCYTES # (AUTO) 0.9 K/uL (0.1-1.0); MONOCYTES % (AUTO) 6.7 % (3.0-13.0); NEUTROPHILS % (AUTO) 78.3 % (40.0-77.0); PLATELET COUNT (AUTO) 183 K/uL (130-400); RED BLOOD CELL COUNT(AUTO) 2.58 MIL/uL (4.50-6.20); RED CELL DISTRIBUTION WIDTH 16.6 % (11.0-15.5); WHITE BLOOD COUNT (AUTO) 12.7 K/uL (4.8-10.8)
[2024-07-03 04:11] LABS: ALBUMIN 1.6 g/dL (3.5-5.0); BILIRUBIN,TOTAL 0.6 mg/dL (0.2-1.0); CREATININE 0.9 mg/dL (0.5-1.3); MAGNESIUM 1.8 mg/dL (1.80-2.40); POTASSIUM 3.3 mmol/L (3.5-5.1); TOTAL PROTEIN, SERUM 4.7 g/dL (6.0-8.3)
[2024-07-03] MEDS ORDERED: BENZONATATE 100 MG CAPSULE PO PRN (11:00)
[2024-07-03] MEDS: PoTASSium chloRIDE 20MEQ ER 20 MEQ ERTAB PO ONE (13:01)
[2024-07-04] VITALS (10 sets, daily range): BP systolic 105–131; BP diastolic 41–78; PULSE 77–88; RESP 16–20; TEMP 98.4–98.8; O2SAT 99–100
[2024-07-04] MEDS: VANCOMYCIN 750MG VIAL IVPB SCH (14:16)
[2024-07-04] MEDS ORDERED: BENZOCAINE/MENTH/CETYLPYRD CL 1 EACH LOZENGE MM PRN (14:30)
[2024-07-05] VITALS (11 sets, daily range): BP systolic 119–165; BP diastolic 59–79; PULSE 72–92; RESP 16–20; TEMP 98–100.1; O2SAT 96–100
[2024-07-05 04:10] LABS: MEAN CORPUSCULAR HEMOGLOBIN 30.1 pg (27.0-33.0); MEAN CORPUSCULAR HGB CONC 30.8 g/dL (32.0-36.0); MEAN CORPUSCULAR VOLUME 97.7 fL (79-99); PLATELET COUNT (AUTO) 161 K/uL (130-400); RED BLOOD CELL COUNT(AUTO) 2.66 MIL/uL (4.50-6.20); RED CELL DISTRIBUTION WIDTH 16.6 % (11.0-15.5); WHITE BLOOD COUNT (AUTO) 10.2 K/uL (4.8-10.8)
[2024-07-05 04:30] LABS: ALBUMIN 1.6 g/dL (3.5-5.0); BILIRUBIN,TOTAL 0.7 mg/dL (0.2-1.0); CREATININE 0.8 mg/dL (0.5-1.3); MAGNESIUM 2.1 mg/dL (1.80-2.40); POTASSIUM 3.8 mmol/L (3.5-5.1); TOTAL PROTEIN, SERUM 4.9 g/dL (6.0-8.3)
[2024-07-05] MEDS: Icosapent Ethyl (Vascepa) 2 GM PO SCH (08:59)
[2024-07-06] VITALS (13 sets, daily range): BP systolic 105–125; BP diastolic 60–71; PULSE 58–90; RESP 17–20; TEMP 98.1–99.1; O2SAT 97–100
[2024-07-06 03:55] LABS: HEMATOCRIT 24.5 % (42-54); MEAN CORPUSCULAR HEMOGLOBIN 30.6 pg (27.0-33.0); MEAN CORPUSCULAR HGB CONC 31.8 g/dL (32.0-36.0); MEAN CORPUSCULAR VOLUME 96.1 fL (79-99); RED BLOOD CELL COUNT(AUTO) 2.55 MIL/uL (4.50-6.20); RED CELL DISTRIBUTION WIDTH 16.4 % (11.0-15.5); WHITE BLOOD COUNT (AUTO) 10.7 K/uL (4.8-10.8)
[2024-07-06 04:09] LABS: ALBUMIN 1.6 g/dL (3.5-5.0); BILIRUBIN,TOTAL 0.7 mg/dL (0.2-1.0); CREATININE 0.8 mg/dL (0.5-1.3); MAGNESIUM 1.8 mg/dL (1.80-2.40); POTASSIUM 3.9 mmol/L (3.5-5.1)
[2024-07-07] VITALS (15 sets, daily range): BP systolic 98–141; BP diastolic 60–74; PULSE 73–89; RESP 18–20; TEMP 98.3–99.3; O2SAT 97–100
[2024-07-07 04:55] LABS: HEMATOCRIT 24.6 % (42-54); MEAN CORPUSCULAR HGB CONC 32.1 g/dL (32.0-36.0); MEAN CORPUSCULAR VOLUME 96.5 fL (79-99); RED BLOOD CELL COUNT(AUTO) 2.55 MIL/uL (4.50-6.20); RED CELL DISTRIBUTION WIDTH 16.3 % (11.0-15.5); WHITE BLOOD COUNT (AUTO) 9.3 K/uL (4.8-10.8)
[2024-07-07 05:11] LABS: ALBUMIN 1.6 g/dL (3.5-5.0); BILIRUBIN,TOTAL 0.7 mg/dL (0.2-1.0); CREATININE 0.9 mg/dL (0.5-1.3); POTASSIUM 3.6 mmol/L (3.5-5.1)
[2024-07-07] MEDS: MEROPENEM 1 GM in 0.9%NACL 100ML 100 ML IVPB SCH (16:13)
[2024-07-07] MEDS: fluCONazole 200 MG/NS 100 ML IVPB SCH (16:46)
[2024-07-08] VITALS (14 sets, daily range): BP systolic 121–147; BP diastolic 67–89; PULSE 71–89; RESP 18–20; TEMP 97.6–99.3; O2SAT 97–99
[2024-07-09] VITALS (14 sets, daily range): BP systolic 97–127; BP diastolic 59–73; PULSE 74–86; RESP 18–20; TEMP 97.3–99.6; O2SAT 98–100
[2024-07-09 03:21] LABS: BASOPHILS # (AUTO) 0.03 K/uL (0.00-0.20); BASOPHILS % (AUTO) 0.4 % (0.0-5.0); EOSINOPHILS # (AUTO) 0.25 K/uL (0.00-0.70); EOSINOPHILS % (AUTO) 3.3 % (0.0-8.0); HEMATOCRIT 24.5 % (42-54); IMMATURE GRANULOCYTE ABSOLUTE 0.13 K/uL (0-1); LYMPHOCYTES # (AUTO) 1.1 K/uL (1.0-4.8); LYMPHOCYTES % (AUTO) 13.8 % (21.0-51.0); MEAN CORPUSCULAR HEMOGLOBIN 30.2 pg (27.0-33.0); MEAN CORPUSCULAR VOLUME 97.2 fL (79-99); MONOCYTES # (AUTO) 0.6 K/uL (0.1-1.0); MONOCYTES % (AUTO) 7.2 % (3.0-13.0); NEUTROPHILS # (AUTO) 5.6 K/uL (1.8-7.7); NEUTROPHILS % (AUTO) 73.6 % (40.0-77.0); PLATELET COUNT (AUTO) 114 K/uL (130-400); RED BLOOD CELL COUNT(AUTO) 2.52 MIL/uL (4.50-6.20); RED CELL DISTRIBUTION WIDTH 16.1 % (11.0-15.5); WHITE BLOOD COUNT (AUTO) 7.7 K/uL (4.8-10.8)
[2024-07-09 03:36] LABS: CREATININE 0.8 mg/dL (0.5-1.3); MAGNESIUM 1.8 mg/dL (1.80-2.40); PHOSPHORUS 2.8 mg/dL (2.5-4.9); POTASSIUM 3.2 mmol/L (3.5-5.1)
[2024-07-09] MEDS: MAGNESIUM 2GM PREMIX 50ML 50 ML IV PRN (05:08)
[2024-07-09] MEDS: PoTASSium chloRIDE 20MEQ/100ML 100 ML IV PRN (05:08)
[2024-07-09] MEDS: PoTASSium chloRIDE 20MEQ ER 20 MEQ ERTAB PO PRN (09:54)
[2024-07-09] MEDS: ASPIRIN 81 MG EC TAB PO SCH (09:54)
[2024-07-09] MEDS: acetaMINOPHEN 325 MG TAB PO PRN (12:11)
[2024-07-10] VITALS (8 sets, daily range): BP systolic 99–109; BP diastolic 55–65; PULSE 73–86; RESP 16–22; TEMP 97.7–98.8; O2SAT 96–97
[2024-07-10 03:48] LABS: BASOPHILS # (AUTO) 0.01 K/uL (0.00-0.20); BASOPHILS % (AUTO) 0.1 % (0.0-5.0); EOSINOPHILS # (AUTO) 0.31 K/uL (0.00-0.70); EOSINOPHILS % (AUTO) 4.1 % (0.0-8.0); HEMATOCRIT 25.1 % (42-54); LYMPHOCYTES # (AUTO) 1.1 K/uL (1.0-4.8); LYMPHOCYTES % (AUTO) 13.9 % (21.0-51.0); MEAN CORPUSCULAR HEMOGLOBIN 29.9 pg (27.0-33.0); MEAN CORPUSCULAR HGB CONC 31.1 g/dL (32.0-36.0); MEAN CORPUSCULAR VOLUME 96.2 fL (79-99); MONOCYTES # (AUTO) 0.6 K/uL (0.1-1.0); MONOCYTES % (AUTO) 7.4 % (3.0-13.0); NEUTROPHILS # (AUTO) 5.6 K/uL (1.8-7.7); NEUTROPHILS % (AUTO) 73.2 % (40.0-77.0); PLATELET COUNT (AUTO) 134 K/uL (130-400); RED BLOOD CELL COUNT(AUTO) 2.61 MIL/uL (4.50-6.20); RED CELL DISTRIBUTION WIDTH 16.1 % (11.0-15.5); WHITE BLOOD COUNT (AUTO) 7.6 K/uL (4.8-10.8)
[2024-07-10 04:00] LABS: CREATININE 0.8 mg/dL (0.5-1.3); POTASSIUM 3.8 mmol/L (3.5-5.1)
[2024-07-10] MEDS: PoTASSium chl 10% ELIXIR 20MEQ 20 MEQ/15 ML UDCUP PO PRN (09:10)
[2024-07-10] MEDS ORDERED: INSULIN GLARgine 100 UNITS/ML 10 ML VIAL SQ SCH (21:00)
[2024-07-16] MEDS ORDERED: GABA300C PO (15:44)
[2024-07-16] MEDS ORDERED: LOSA100T59 PO (15:44)
[2024-07-16] MEDS ORDERED: BACL5TAB PO (15:44)
[2024-07-16] MEDS ORDERED: AMLO-258 PO (15:44)
[2024-07-16] MEDS ORDERED: PIOG15TA66 PO (15:44)
[2024-07-16] MEDS ORDERED: TAMS-1 PO (15:44)
[2024-07-16] MEDS ORDERED: METF-446 PO (15:44)
[2024-07-16] MEDS ORDERED: ATOR20TA65 PO (15:44)
[2024-07-16] MEDS ORDERED: AEC81 PO (15:44)
[2024-07-16] MEDS ORDERED: METO-408 PO (15:44)
[2024-07-16] MEDS ORDERED: EMPA25TA PO (15:44)
[2024-07-18] MEDS ORDERED: INSLAN SQ (08:19)
[2024-07-18] MEDS ORDERED: GUAI100S13 PO (08:19)
[2024-07-18] MEDS ORDERED: DABI110C PO (08:19)
[2024-07-18] MEDS ORDERED: ICOS1CAP PO (08:19)
[2024-07-18] MEDS ORDERED: MELA5TAB66 PO (08:19)
[2024-07-18] MEDS ORDERED: MERO1VIA23 IV (08:19)
[2024-07-18] MEDS ORDERED: FOLI1 PO (08:19)
[2024-07-18] MEDS ORDERED: ASCO-360 PO (08:19)
[2024-07-18] MEDS ORDERED: FAMO20TA8 PO (08:19)
[2024-07-18] MEDS ORDERED: MULT-1367 PO (08:19)
[2024-07-18] MEDS ORDERED: IPRA3AMP24 IH (08:19)
[2024-07-18] MEDS ORDERED: FURO-151 PO (08:19)
[2024-07-18] MEDS ORDERED: AMIO200T68 PO (08:19)
[2024-07-18] MEDS ORDERED: ACET325T51 PO (08:19)
[2024-07-18] MEDS ORDERED: ZINC220C6 PO (08:19)
[2024-07-18] MEDS ORDERED: DOCU100C33 PO (08:19)
[2024-07-18] MEDS ORDERED: AMIN30LI7 PO (08:19)
[2024-07-18] MEDS ORDERED: POLY17PO4 PO (08:19)
[2024-07-18] MEDS ORDERED: PVANC1GM IV (08:19)
== END 2024-07-10 18:29 | DRG 215 ==
LOC: DAH 06:57 → DAHIP 06:58 → DAH 06:58 → 2AH 14:35 → 2CV 06-08 11:04 → 2BH 06-24 14:46 → 2CH 06-28 13:51 → 2DH 06-30 18:37
PROVIDERS: ADMIT Internal Medicine; ATTEND Internal Medicine
PROC: 4A023N7 Measurement of Cardiac Sampling and Pressure, Left Heart, Percutaneous Approach (ICD-10-PCS; 2024-06-04)
PROC: B2111ZZ Fluoroscopy of Multiple Coronary Arteries using Low Osmolar Contrast (ICD-10-PCS; 2024-06-04)
PROC: B2151ZZ Fluoroscopy of Left Heart using Low Osmolar Contrast (ICD-10-PCS; 2024-06-04)
PROC: 5A0221D Assistance with Cardiac Output using Impeller Pump, Continuous (ICD-10-PCS; 2024-06-08)
PROC: B24BZZ4 Ultrasonography of Heart with Aorta, Transesophageal (ICD-10-PCS; 2024-06-08)
PROC: 30233N1 Transfusion of Nonautologous Red Blood Cells into Peripheral Vein, Percutaneous Approach (ICD-10-PCS; 2024-06-08)
PROC: 30233R1 Transfusion of Nonautologous Platelets into Peripheral Vein, Percutaneous Approach (ICD-10-PCS; 2024-06-08)
PROC: 02100Z9 Bypass Coronary Artery, One Artery from Left Internal Mammary, Open Approach (ICD-10-PCS; principal; 2024-06-08 10:44)
PROC: 02HA3RZ Insertion of Short-term External Heart Assist System into Heart, Percutaneous Approach (ICD-10-PCS; 2024-06-08 10:44)
PROC: 021209W Bypass Coronary Artery, Three Arteries from Aorta with Autologous Venous Tissue, Open Approach (ICD-10-PCS; 2024-06-08 10:44)
PROC: 06BQ4ZZ Excision of Left Saphenous Vein, Percutaneous Endoscopic Approach (ICD-10-PCS; 2024-06-08 10:44)
PROC: 5A02210 Assistance with Cardiac Output using Balloon Pump, Continuous (ICD-10-PCS; 2024-06-08 10:44)
PROC: 30233K1 Transfusion of Nonautologous Frozen Plasma into Peripheral Vein, Percutaneous Approach (ICD-10-PCS; 2024-06-09)
PROC: 02HA3RZ Insertion of Short-term External Heart Assist System into Heart, Percutaneous Approach (ICD-10-PCS; 2024-06-16)
PROC: 02PA3RZ Removal of Short-term External Heart Assist System from Heart, Percutaneous Approach (ICD-10-PCS; 2024-06-16)
PROC: 5A0221D Assistance with Cardiac Output using Impeller Pump, Continuous (ICD-10-PCS; 2024-06-16)
PROC: 5A09357 Assistance with Respiratory Ventilation, Less than 24 Consecutive Hours, Continuous Positive Airway Pressure (ICD-10-PCS; 2024-06-21)
PROC: 5A1955Z Respiratory Ventilation, Greater than 96 Consecutive Hours (ICD-10-PCS; 2024-06-21)
PROC: 0BH17EZ Insertion of Endotracheal Airway into Trachea, Via Natural or Artificial Opening (ICD-10-PCS; 2024-06-21)
PROC: 5A09357 Assistance with Respiratory Ventilation, Less than 24 Consecutive Hours, Continuous Positive Airway Pressure (ICD-10-PCS; 2024-06-22)
PROC: 02PA3RZ Removal of Short-term External Heart Assist System from Heart, Percutaneous Approach (ICD-10-PCS; 2024-06-23)
PROC: 04QK3ZZ Repair Right Femoral Artery, Percutaneous Approach (ICD-10-PCS; 2024-06-23)
DX: I25.110 Atherosclerotic heart disease of native coronary artery with unstable angina pectoris (principal); G93.41 Metabolic encephalopathy; R57.0 Cardiogenic shock; N17.0 Acute kidney failure with tubular necrosis; J15.69 Pneumonia due to other Gram-negative bacteria; J15.0 Pneumonia due to Klebsiella pneumoniae; J96.21 Acute and chronic respiratory failure with hypoxia; I97.190 Other postprocedural cardiac functional disturbances following cardiac surgery; I74.3 Embolism and thrombosis of arteries of the lower extremities; Z68.43 Body mass index [BMI] 50.0-59.9, adult; E87.0 Hyperosmolality and hypernatremia; D62 Acute posthemorrhagic anemia; G72.81 Critical illness myopathy; E11.52 Type 2 diabetes mellitus with diabetic peripheral angiopathy with gangrene; I50.42 Chronic combined systolic (congestive) and diastolic (congestive) heart failure; E46 Unspecified protein-calorie malnutrition; R65.10 Systemic inflammatory response syndrome (SIRS) of non-infectious origin without acute organ dysfunction; I47.20 Ventricular tachycardia, unspecified; Y71.3 Surgical instruments, materials and cardiovascular devices (including sutures) associated with adverse incidents; T45.515A Adverse effect of anticoagulants, initial encounter; D75.829 Heparin-induced thrombocytopenia, unspecified; Z20.822 Contact with and (suspected) exposure to COVID-19; E78.5 Hyperlipidemia, unspecified; E11.40 Type 2 diabetes mellitus with diabetic neuropathy, unspecified; I11.0 Hypertensive heart disease with heart failure; N40.0 Benign prostatic hyperplasia without lower urinary tract symptoms; E87.5 Hyperkalemia; E66.01 Morbid (severe) obesity due to excess calories; J02.9 Acute pharyngitis, unspecified; E11.621 Type 2 diabetes mellitus with foot ulcer; B35.1 Tinea unguium; L60.2 Onychogryphosis; R62.7 Adult failure to thrive; L97.529 Non-pressure chronic ulcer of other part of left foot with unspecified severity; B35.3 Tinea pedis; E11.42 Type 2 diabetes mellitus with diabetic polyneuropathy; E11.65 Type 2 diabetes mellitus with hyperglycemia; E78.00 Pure hypercholesterolemia, unspecified; I25.5 Ischemic cardiomyopathy; I48.0 Paroxysmal atrial fibrillation; I49.3 Ventricular premature depolarization; L97.519 Non-pressure chronic ulcer of other part of right foot with unspecified severity; Z79.02 Long term (current) use of antithrombotics/antiplatelets; Z79.4 Long term (current) use of insulin; Z79.82 Long term (current) use of aspirin; Z79.899 Other long term (current) drug therapy; Z83.3 Family history of diabetes mellitus; Z87.891 Personal history of nicotine dependence; Y92.89 Other specified places as the place of occurrence of the external cause
CPT/HCPCS: 33990; 36140; 36415; 36430; 36556; 36569; 36600; 37184; 71045; 71270; 73630; 75710; 76000; 80048; 80053; 80061; 80076; 80202; 81001; 82140; 82306; 82330; 82435; 82550; 82607; 82803; 82947; 82948; 83036; 83605; 83735; 83880; 84100; 84132; 84145; 84295; 84439; 84443; 84481; 85014; 85018; 85025; 85027; 85347; 85384; 85610; 85730; 86022; 86850; 86900; 86901; 86923; 86927; 87040; 87071; 87086; 87186; 87205; 87635; 87641; 87804; 87880; 92526; 92610; 93005; 93306; 93308; 93312; 93318; 93325; 93458; 93880; 93925; 93926; 93970; 94002; 94003; 94010; 94150; 94640; 94660; 94664; 99156; 99157; A4357; A4606; A7048; C1751; C1760; C1769; C1894; G0378; J0171; J0282; J0612; J0690; J0692; J0883; J1100; J1450; J1644; J1652; J1815; J1940; J1956; J2001; J2185; J2250; J2371; J2405; J2440; J2543; J2704; J2710; J2720; J2919; J3010; J3370; J3411; J3475; J3480; J3490; J7030; J7040; J7050; J7060; J7070; J7120; P9016; P9017; P9034; P9045; Q0163; Q9967; 3370; A4213; A4215; A4216; A4221; A4222; A4223; A4315; A4452; A4600; A4649; A4663; A4930; A5120; A6204; A6219; A9900; C1713; C1750; C1776; C1887; G0168; Q9965